=== PATIENT | male | born 1940 | race Caucasian/White ===

== ENCOUNTER → 2018-05-30 | Outpatient (CLI) | payer MEDICARE ==
[2018-05-30 09:15] LABS: Basophils % (A) 0 %; Eosinophils % (A) 1 %; HGB 14.6 gm/dL (13.0-17.5); Lymphocytes # (A) 2.3 k/uL (1.0-4.8); Lymphocytes % (A) 43 %; MCH 30.6 pg (25.0-35.0); MCHC 32.3 g/dL (31.0-37.0); MCV 94.7 fL (80.0-100.0); Mean Platelet Volume 7.2; Monocytes # (A) 0.3 k/uL (0-1.0); Monocytes % (A) 5 %; Neutrophils # (A) 2.7 k/uL (1.3-7.7); Neutrophils % (A) 49 %; Platelet Count 163 k/uL (150-450); RBC 4.76 m/uL (4.30-5.90); RDW 12.5 % (11.5-15.5); WBC 5.4 k/uL (3.8-10.6)
[2018-05-30 09:26] LABS: Partial Thromboplastin Time 24.2 sec (22.0-30.0); Prothrombin Time 9.6 sec (9.0-12.0)
[2018-05-30 09:34] LABS: Calcium 9.3 mg/dL (8.4-10.2)
[2018-05-30 09:37] LABS: Appearance,Urine Clear (Clear); Bilirubin,Urine Negative (Negative); Blood,Urine Negative (Negative); Color,Urine Yellow; Glucose,Urine (UA) 4+ (Negative); Ketones,Urine Negative (Negative); Leukocyte Esterase,Urine Negative (Negative); Nitrite,Urine Negative (Negative); Protein,Urine Negative (Negative); Urobilinogen,Urine <2.0 mg/dL (<2.0)
--- NOTE | 2018-05-30 11:50 | XR ---
EXAMINATION TYPE: XR chest 2V DATE OF EXAM: 05/30/2018 COMPARISON: 01/06/2011 HISTORY: 78-year-old male preoperative evaluation for lower back surgery TECHNIQUE: Frontal and lateral views FINDINGS: Heart normal size. Aorta and pulmonary vasculature within normal limits. No consolidation or pleural effusion. IMPRESSION: No acute cardiopulmonary process.
== END | disposition home or self-care (01) ==
LOC: LABPAT 07:42
PROVIDERS: ATTEND Orthopaedic Surgery Orthopaedic Surgery of the Spine
DX: Z01.818 Encounter for other preprocedural examination (principal); Z01.812 Encounter for preprocedural laboratory examination; M43.10 Spondylolisthesis, site unspecified; Z51.81 Encounter for therapeutic drug level monitoring; Z79.01 Long term (current) use of anticoagulants
CPT/HCPCS: 71046; 80048; 81003; 85025; 85610; 85730; 87070; 93005

== ENCOUNTER 2018-06-06 08:35 | Inpatient (IN) | payer MEDICARE ==
[2018-05-25 11:19] VITALS: BMI 30.8
[~2018-06-06 08:35] MED LIST: BACITRACIN 50,000 UNIT, POLYMYXIN B 500,000 UNIT in SODIUM CHLORIDE 0.9% IRRIGATIO 1,00... IRRIGATION ONE; HYDROmorphone 0.5 MG/0.5 ML SYRINGE IVP PRN; LIDOCAINE 1% 20 ML VIAL (10MG/ML) FOR IV START INTRADERMA PRN; ONDANSETRON 4 MG/2 ML VIAL IVP ONE; ceFAZolin IN SWFI 2 GM/20 ML SYRINGE IVP ONE
[2018-06-06 12:12] LABS: Glucose,Whole Blood 151 mg/dL (75-99)
[2018-06-06] MEDS: LACTATED RINGERS 1,000 ML IV SCH (12:12)
[2018-06-06] MEDS ORDERED: LIDOCAINE 0.5%-EPI 1:200,000 50 ML VIAL SQ ONE (13:44)
[2018-06-06] MEDS ORDERED: GELATIN SPONGE,ABSORB (LARGE) 1 EACH SPONGE TOPICAL ONE (13:44)
[2018-06-06] MEDS ORDERED: THROMBIN (BOVINE) 5,000 UNIT VIAL TOPICAL ONE (13:44)
[2018-06-06] MEDS ORDERED: LACTATED RINGERS 1,000 ML IV ONE ×2 (13:45→16:30)
[2018-06-06] MEDS ORDERED: BENZOCAINE/MENTHOL LOZENG 1 EACH LOZENGE MUCOUS MEM PRN (17:10)
[2018-06-06] MEDS ORDERED: MAGNESIUM HYDROXIDE 2,400 MG/10 ML CUP PO PRN (17:10)
[2018-06-06] MEDS ORDERED: ONDANSETRON 4 MG/2 ML VIAL IVP PRN (17:10)
[2018-06-06] MEDS ORDERED: HYDROcodone/APAP 5-325MG 1 EACH TAB PO PRN (17:10)
--- NOTE | 2018-06-06 17:24 | P.OP ---
Date of Procedure: 06/06/18 Preoperative Diagnosis: Severe spinal stenosis L3 4 L4 5, spondylolisthesis L4 5, facet arthrosis, degenerative disc disease, lower extremity radiculopathy, neurogenic claudication, low back pain with lower extremity radiculopathy Postoperative Diagnosis: Severe spinal stenosis L3 4 L4 5, spondylolisthesis L4 5, facet arthrosis, degenerative disc disease, lower extremity radiculopathy, neurogenic claudication, low back pain with lower extremity radiculopathy Anesthesia: GETA Pathology: none sent Condition: stable Disposition: PACU Description of Procedure: DESCRIPTION OF PROCEDURE(S): BRIEF OPERATIVE NOTE Preoperative Diagnosis: Severe spinal stenosis L3 4 L4 5, spondylolisthesis L4 5 , facet arthrosis, degenerative disc disease, lower extremity radiculopathy, neurogenic claudication, low back pain with lower extremity radiculopathy Postoperative Diagnosis: Same Procedure: Minimally invasive Laminectomy and decompression L3 4 L4 5 with wide decompression bilaterally Minimally invasive Posterior lateral decompression and facet fusion L3 4 L4 5 Minimally invasive Transforaminal lumbar interbody fusion for a 360 fusion L3 4 L4 5 Discectomy for decompression L3 4 L4 5 Placement of interbody graft L3 4 L4 5 Local autogenous bone grafting Use of Cell Saver Harvesting of bone marrow aspirate via the pedicle of L3 vertebral body Use of bone graft extenders Surgeon: Dr. Lang Manager Etl: Arnold NOLASCO who is present throughout the entire the case persistence during positioning, dissection, exposure, visualization, and all crucial elements of the case as well as closure. Anesthesia: General anesthesia per Dr. Dr. Swenson Estimated blood loss: Approximately 250 mL with some given back through Cell Saver Complications: None apparent Components implanted: K2M minimally invasive [place] pedicle screw system with K2M [place] interbody titanium expend cages 9-12 mm, with 2 rods and 1 large osteo amp sponge and 30 mL of DBX bone bone fibers to supplement the local autogenous and bone marrow aspirate graft Disposition: To recovery room in good stable condition. OPERATIVE INDICATIONS The patient has had long-standing issues in their lower back and lower extremities. He was found to have severe spinal stenosis L3 4 and L4 5 with spondylolisthesis at L4 5. His imaging correlated well with his neurogenic claudication lower extremity radiculopathy and low back pain with lower extremity pain. The patient has been through conservative treatment. He is not having any prolonged lasting effect with the conservative treatment despite aggressive conservative care We discussed various treatment options including surgery, and the patient wishes to proceed with surgery We discussed the risk, patient's alternatives and benefits of surgery including but not limited to, risk of bleeding risk of infection, risk of need for further surgery, risk of decreased, loss of motion, muscle function, malunion nonunion, hardware failure , nerve damage, paralysis, heart attack, blindness and . OPERATIVE SUMMARY After discussing all the risks, patient alternatives and benefits at length, the patient elected to proceed with surgical intervention, signed informed consent, and presented for their procedure. The patient was seen and examined in the preoperative holding area and the surgical site was marked. The patient was given antibiotics and brought to the operating room. The patient was sedated and intubated by anesthesia in standard fashion. The patient was positioned on to the operating room table in a prone position on the appropriate frame which was well-padded and well molded. We were careful to pad any bony prominences and pressure points. We were careful to maintain the patient's cervical spine and good neutral alignment and position throughout. The patient was prepped and draped in a normal standard fashion. An appropriate timeout and keystone protocol performed. We were able to proceed with the surgery. The local wound area was infiltrated with local anesthetic. I was able utilize C-arm guidance to establish appropriate position over the pedicles bilaterally at the appropriate levels at L3 4 and 5. With the appropriate levels confirmed was able to make small stab incisions over the appropriate pedicle sites bilaterally. Utilizing C-arm in his house able to establish a Jamshidi needle over the lateral aspect of the pedicle and advanced the trocar into the pedicle being careful not to breech superiorly inferiorly medially or laterally. Position was confirmed regularly with AP and lateral images on C-arm. I was able to establish the trocar into the pedicle appropriately into the posterior aspect of the vertebral body bilaterally at the appropriate levels. This was done at each of the pedicle positions and each of the vertebrae at L3 4 and [address] I was able place the guidewire into the trocar and into the vertebral body appropriately under C-arm guidance. Dissection was taken down over the wire to the appropriate starting position for the screw placed. The appropriate length screw was chosen, threaded over the guidewire and screwed appropriately into the pedicle and vertebral body under C-arm guidance in excellent alignment and position with good bony purchase. This is done at each of the screw sites at the appropriate levels at L3 4 and 5. At the L3 pedicle I did aspirate approximately 20 mL of bone marrow aspirate to be used in conjunction with the local autogenous and allograft bone graft With the screws intact I extended the incision to connect the screw hole sites on the most symptomatic side on the right. I dissected down to establish access over the pars and lamina to the base of the spinous process. I was able to expose the facet joint. The capsule the facet was taken down and showed some facet arthrosis at the joint. I was able to use a combination of curettes and Kerrison rongeurs and a high-speed drill to take down the facet joint and do a facetectomy. Partial laminectomy was also performed. I was able get excellent foraminal decompression and central decompression with undermining across midline to perform a laminectomy centrally and contralaterally. As able get good central decompression at each level L3 4 and L4 5. The ligamentum flavum was taken down to further decompress centrally and at bilateral neural foramen. I was able to expose the disc space and visualize the traversing nerve root. Note was made of some disc protrusion at the level causing further compression of the nerve root. I was able to establish a annulotomy at the appropriate level first at protecting sof L4 5 and then at L3 4t tissue and neural structures. Note was made of some disc significant desiccation at the disc. I performed a complete discectomy with accommodation of curettes and rasps and scrapers. I was able get good endplate preparation at the disc space. I sized for the appropriate size interbody spacer protecting the soft tissue and neural structures. The wound was copiously irrigated and suctioned dry. There is no evidence of any dural tear or leak. I was able to pack the disc space with local autogenous bone graft as well as a small amount of bone graft which was also placed into the interbody cage itself. Protecting the soft tissue structures and neural structures I was able place the interbody cage in good alignment and good position with good fit and fill at the interbody space. I was able to expand the cage appropriately to achieve good lordosis and disc height. Position was confirmed with C-arm guidance. Good hemostasis maintained. There is no evidence of any dural tear or leak. The wound was irrigated and suctioned dry. With the hardware intact, intraoperative C-arm imaging was again taken which showed good alignment and position of the hardware at the appropriate levels at L3 4 and L4 5 . We were then able to measure, contour and place the rods and appropriate hardware bilaterally. I was able to place capcrews, tighten them down, and torque them with the torque screwdriver appropriately. With this intact I was able to place the local autogenous bone graft with additional bone graft enhancer as necessary into the posterior lateral gutters over the decorticated transverse processes. The remainder of the bone graft was placed over the facet joint on the contralateral side after taking down the facet joint capsule. With the bone graft intact, a stable construct, and good decompression at the appropriate levels, we were able to proceed with closure. Good hemostasis was maintained. There is no evidence of dural tear or leak. The fascia was closed for a watertight closure. he subcuticular tissue was closed with absorbable suture. The wound was cleaned and dried and dressed with the appropriate dressing. The drapes were broken down. The patient was gently rolled back onto their hospital bed being careful to maintain their cervical spine and good neutral alignment and position. They were woken up by anesthesia, extubated, and brought to the recovery room in good stable condition. The patient will be admitted to the hospital for appropriate postoperative care , medical management and monitoring. We will continue to follow them closely about the postoperative course.
[2018-06-06] MEDS: HYDROmorphone 1 MG/ML 1 ML SYRINGE IVP PRN ×3 (17:35→21:14)
[2018-06-06] MEDS: SODIUM CHLORIDE 0.9% 1,000 ML IV SCH (21:01)
[2018-06-06] MEDS: metFORMIN 500 MG TAB PO SCH (21:02)
[2018-06-06] MEDS: DONEPEZIL 10 MG TAB PO SCH (21:02)
[2018-06-06] MEDS: MAGNESIUM OXIDE 400 MG TAB PO SCH (21:02)
[2018-06-06] MEDS: ceFAZolin IN SWFI 2 GM/20 ML SYRINGE IVP SCH (21:02)
[2018-06-06] MEDS: OXYBUTYNIN CHLORIDE 5 MG TAB PO SCH (21:02)
[2018-06-07] MEDS: ONDANSETRON 4 MG/2 ML VIAL IVP PRN ×2 (04:30→11:36)
[2018-06-07] MEDS: HYDROmorphone 1 MG/ML 1 ML SYRINGE IVP PRN ×3 (04:34→14:40)
[2018-06-07] MEDS: ceFAZolin IN SWFI 2 GM/20 ML SYRINGE IVP SCH (04:36)
[2018-06-07] MEDS: LACTATED RINGERS 1,000 ML IV SCH (04:59)
[2018-06-07] MEDS: SODIUM CHLORIDE 0.9% 1,000 ML IV SCH ×2 (05:43→22:17)
--- NOTE | 2018-06-07 05:51 | CONS ---
CONSULTATION DATE OF SERVICE: 06/07/2018. REASON FOR CONSULTATION: Advice regarding diabetes mellitus and CVA requested by Dr. Lang. HISTORY OF PRESENT ILLNESS: This 78-year-old gentleman with a past history of diabetes, hypertension, history of memory impairment, being followed by Dr. Maloney in the outpatient setting underwent minimally invasive laminectomy and decompression L3-4-5 with wide decompression bilaterally for his severe spinal stenosis and spondylolisthesis by Dr. Lang. The patient is having complaints of pain and complains of nausea at this time. The patient apparently received Dilaudid 1 mg. There is no history of fever, rigors. No headache, loss of consciousness, seizures. PAST MEDICAL: CVA, TIA, diabetes and hypertension, memory impairment, history of degenerative joint disease. MEDICATIONS: Prior to admission include home medications are: 1. Glucophage 500 mg p.o. b.i.d. 2. Norvasc 10 mg p.o. daily. 3. Ditropan 5 mg p.o. b.i.d. 4. Antivert 25 mg p.o. daily. 5. Magnesium oxide 400 mg p.o. b.i.d. 6. Lantus 28 units subcu q.a.m. 7. Motrin 600 mg p.o. t.i.d. 8. Vasotec 10 mg p.o. daily. 9. Aricept 10 mg q.h.s. 10.Aggrenox 200/25 1 p.o. b.i.d. 11.Vitamin D3 5000 daily. ALLERGIES: None. FAMILY HISTORY: No history of heart disease or strokes in family. SOCIAL HISTORY: Previous history of smoking. No history of alcohol intake. REVIEW OF SYSTEMS: ENT: No diminished hearing or vision. CARDIOVASCULAR: No angina. RESPIRATORY: As mentioned earlier. GI: As mentioned earlier. : No dysuria. NERVOUS SYSTEM: No numbness or weakness. ALLERGY/IMMUNOLOGY: No history of asthma or hay fever. MUSCULOSKELETAL: As mentioned earlier. HEMATOLOGY: No history of anemia. ENDOCRINE: History of diabetes. CONSTITUTIONAL: As mentioned earlier. DERMATOLOGY: Negative. RHEUMATOLOGY: Negative. PSYCHIATRY: As mentioned earlier. PHYSICAL EXAMINATION: Alert and oriented x3. Pulse 83, blood pressure 140/73, respiration 12, temperature 97.4, pulse ox 98% on 3 L. HEENT: Conjunctivae normal. Oral mucosa moist. NECK; No jugular venous distention. No carotid bruit. No lymph node enlargement. CARDIOVASCULAR: S1, S2. RESPIRATORY: Breath sounds diminished in the bases. A few scattered rhonchi and crackles. ABDOMEN: Soft, nontender. No mass palpable. BACK: Status post surgery. LEGS: No edema, no swelling. NERVOUS SYSTEM: Higher functions as mentioned. Moves all four limbs. No focal motor deficits. LYMPHATICS: No lymphadenopathy in the neck, axillae, groin. SKIN: No ulcer, rash, bleeding. LAB STUDIES: Glucose 151, otherwise the previous labs prior to surgery: Coags, CBC, BMP within normal limits. ASSESSMENT: 1. Status post laminectomy decompression L3-4-5 with wide decompression bilaterally for severe spinal stenosis L3-4-5 and spondylolisthesis. 2. Postoperative nausea. 3. Diabetes mellitus type 2. 4. Hypertension. 5. Memory impairment. 6. Urinary incontinence, history. 7. Remote history of nicotine dependence. RECOMMENDATIONS AND DISCUSSION This 78-year-old gentleman presents after surgery at this time I recommend to continue the current management and symptomatic treatment. Proton pump inhibitors and pain medications. DVT prophylaxis. Otherwise resume the home medications. We will monitor blood sugars closely. Accu-Cheks a.c. and at bedtime, scale also will be recommended. Follow the patient closely and the patient may be asked to follow up with primary physician closely after discharge. Thank you Dr. Lang for letting us participate in this patient. MMODL / IJN: [id number] /
[2018-06-07 07:18] LABS: Basophils % (A) 0 %; Eosinophils % (A) 0 %; HCT 40.9 % (39.0-53.0); HGB 13.7 gm/dL (13.0-17.5); Lymphocytes # (A) 1.1 k/uL (1.0-4.8); Lymphocytes % (A) 10 %; MCH 31.7 pg (25.0-35.0); MCHC 33.5 g/dL (31.0-37.0); MCV 94.7 fL (80.0-100.0); Mean Platelet Volume 6.7; Monocytes # (A) 0.6 k/uL (0-1.0); Monocytes % (A) 5 %; Neutrophils # (A) 9.4 k/uL (1.3-7.7); Neutrophils % (A) 84 %; Platelet Count 150 k/uL (150-450); RBC 4.31 m/uL (4.30-5.90); RDW 12.2 % (11.5-15.5); WBC 11.1 k/uL (3.8-10.6)
[2018-06-07] MEDS: HYDROcodone/APAP 5-325MG 1 EACH TAB PO PRN ×2 (07:19→20:25)
[2018-06-07 07:31] LABS: Anion Gap 9 mmol/L; Blood Urea Nitrogen 17 mg/dL (9-20); Calcium 8.8 mg/dL (8.4-10.2); Carbon Dioxide 25 mmol/L (22-30); Chloride 106 mmol/L (98-107); Glucose 244 mg/dL (74-99); Potassium 4.1 mmol/L (3.5-5.1); Sodium 140 mmol/L (137-145)
[2018-06-07 07:32] LABS: Glucose,Whole Blood 211 mg/dL (75-99)
--- NOTE | 2018-06-07 07:54 | XR ---
Fluoroscopy History: HARDWARE PLACEMENT 2 MIN 4 SEC FLUORO, 3 IMAGES SCANNED INTO PACS
[2018-06-07] MEDS ORDERED: DIPYRIDAMOLE-ASPIRIN 200-25 MG 1 EACH CPMP.12HR PO SCH (08:00)
--- NOTE | 2018-06-07 08:24 | P.PN ---
<Arnold Godwin - Last Filed: 06/07/18 08:23> Progress Note - Text Progress Note Date: 06/07/18 Orthopedic Spine Patient is a pleasant 78-year-old male who is seen and examined at the bedside following posterior lateral decompression and fusion performed yesterday. Patient states they are doing ok postsurgically. Patient continues have significant pain at the surgical sites. He has not been out of bed. He has difficulty with performing hip flexion with the left lower extremity. He is able to perform ankle flexion-extension without difficulty. He is not currently complaining of lower extremity radiculopathy pain. He had some nausea with vomiting this morning but was able to eat breakfast. He is currently drinking orange juice. Currently does not complain of fever or chills. Patient states pain has been fairly well controlled. Patient is eating and voiding freely without difficulty. Whole catheter remains intact Physical Exam Lumbar Fusion: Status post surgical day number 1 Patient is awake, alert, and oriented 3 Vital signs stable Good chest excursion with deep inspiration and expiration; O2 nasal cannula intact Abdomen soft nontender Dorsiflexion, plantarflexion, and extensor hallucis longus positive sustained bilaterally Symptoms difficulty with performing hip flexion on the left No signs or symptoms of DVT; no calf pain; pneumatic cuffs not currently intact bilateral lower extremities Dressing is clean, dry, and intact; no erythema, purulence, or signs of infection Neurovascularly intact bilaterally lower extremities Assessment: Status post Minimally invasive posterior lateral decompression and fusion L3-4 and L4-5 Status post Transforaminal lumbar interbody fusion L3-4 and L4-5 Low back pain with lower extremity radiculopathy Lumbar spinal stenosis, facet arthrosis, and degenerative disc disease L4-5 spondylolisthesis Plan: 1. Ambulate as tolerated; work with Physical Therapy to increase mobilization 2. Continue pain control with IV and oral medications 3. Dressing to remain intact with Telfa and Tegaderm 4. Medical management can continue to manage patient for patient's other medical issues 5. We will continue to follow the patient closely 6. Patient can follow-up with Arnold Godwin PA-C or Dr. Marty Lang at [facility] in 2-3 weeks following discharge <Caitlyn Lang - Last Filed: 06/07/18 21:22> Progress Note - Text Patient is seen and examined today. He has been having very limited mobility today. The Francois still intact. He was able to sit up at the side of the bed but was unable to do anymore due to the pain in his back. He is alert and oriented 3 not exactly sure about how he should be handling his pain. Overall I think he is handling his pain adequately but I like to get him more mobilized by the morning. We will discontinue his Francois in the a.m. and plan on him increasing examination with physical therapy. We will also need to have him seen by case management for proper evaluation for possible discharge planning either to home or potentially a [facility] facility.
[2018-06-07] MEDS: INSULIN ASPART 100 UNIT/ML 1 ML 10 ML VIAL SQ SCH ×4 (08:29→20:24)
[2018-06-07] MEDS: PANTOPRAZOLE 40 MG/10 ML VIAL IVP SCH ×2 (08:29→20:25)
[2018-06-07] MEDS: INSULIN DETEMIR 100 UNIT/ML 10 ML VIAL SQ SCH (08:29)
[2018-06-07] MEDS: metFORMIN 500 MG TAB PO SCH ×2 (08:32→20:24)
[2018-06-07] MEDS: MAGNESIUM OXIDE 400 MG TAB PO SCH ×2 (08:32→20:24)
[2018-06-07] MEDS: OXYBUTYNIN CHLORIDE 5 MG TAB PO SCH ×2 (08:32→20:24)
[2018-06-07] MEDS: SENNOSIDES-DOCUSATE SODIUM 1 EACH TAB PO SCH (08:33)
[2018-06-07] MEDS: CHOLECALCIFEROL 1,000 UNIT TAB PO SCH (08:33)
[2018-06-07] MEDS: amLODIPine 10 MG TAB PO SCH (08:33)
[2018-06-07] MEDS: MECLIZINE 25 MG TAB PO SCH (08:35)
[2018-06-07] MEDS: LISINOPRIL 20 MG TAB PO SCH (08:35)
[2018-06-07 11:54] LABS: Glucose,Whole Blood 284 mg/dL (75-99)
[2018-06-07 12:45] LABS: Hemoglobin A1C 6.7 % (4.0-6.0)
--- NOTE | 2018-06-07 14:19 | PN ---
PROGRESS NOTE DATE OF SERVICE: 06/07/2018 This is a 78-year-old gentleman admitted after back surgery and significant vomiting today. No chest pain. No palpitations. Blood sugar is elevated. PAST MEDICAL HISTORY: Reviewed. REVIEW OF SYSTEMS: CARDIOVASCULAR: As mentioned earlier. RESPIRATORY: As mentioned earlier. GI: As mentioned earlier. : Negative. NERVOUS SYSTEM: Negative. PHYSICAL EXAMINATION: Patient is alert, oriented x3. Pulse is 80. The blood pressure 160/97, respiration 14, temperature 98.2, pulse ox 98% on room air. HEENT: Conjunctivae normal, oral mucosa moist. Neck is no jugular venous distention. No lymph node enlargement. CARDIOVASCULAR SYSTEMS: S1, S2, muffled. RESPIRATORY: Breath sounds diminished at the bases, a few scattered rhonchi, no crackles. ABDOMEN: Soft, nontender. No mass palpable. LEGS: No edema, no swelling. NERVOUS SYSTEM: No focal deficits. extension back status post surgery please add review of systems cardiovascular no angina respiration GI mentioned : As mentioned earlier. CURRENT MEDICATIONS: Reviewed include: 1. Gilbert 5 mg q.4 p.r.n. 2. Norvasc 10 mg daily. 3. Vitamin D3. 4. Aggrenox 1 p.o. b.i.d. 5. Aricept. 6. Dilaudid. 7. NovoLog. 8. Levemir. 9. Lactated Ringers. 10.Lisinopril. 11.Milk of Magnesia. 12.Magnesium oxide. 13.Antivert. 14.Glucophage. 15.Zofran. 16.Ditropan. 17.Protonix. LABS: Reviewed. ASSESSMENT: 1. Status post laminectomy with decompression L3, 4, 5 with decompression bilaterally for severe spinal stenosis L3, 4, 5 and spondylolisthesis. 2. Postoperative nausea and acute gastritis. 3. Diabetes mellitus type 2. 4. Hypertension. 5. Memory impairment. 6. Urinary incontinence history. 7. Remote history of nicotine dependence. RECOMMENDATION: Recommend to continue current management and symptomatic treatment, otherwise as this time I would recommend IV fluids, n.p.o. per mouth, Protonix IV b.i.d. Recommend to hold the Aggrenox for now and also check serum ketones. Otherwise, I will continue to monitor. Follow with . Further recommendations to follow. MMODL / IJN: [id number] / CYNTHIA
[2018-06-07 14:41] LABS: Appearance,Urine Clear (Clear); Bacteria,Urine Rare /hpf; Bilirubin,Urine Negative (Negative); Blood,Urine Small (Negative); Color,Urine Yellow; Glucose,Urine (UA) 4+ (Negative); Ketones,Urine Trace (Negative); Leukocyte Esterase,Urine Trace (Negative); Mucus,Urine Rare /hpf; Nitrite,Urine Negative (Negative); Protein,Urine Trace (Negative); RBC,Urine 3 /hpf (0-5); Specific Gravity,Urine 1.022 (1.001-1.035); Squamous Epithelial Cell,Urine <1 /hpf (0-4); Urobilinogen,Urine <2.0 mg/dL (<2.0); WBC,Urine 6 /hpf (0-5)
[2018-06-07 16:46] LABS: Glucose,Whole Blood 250 mg/dL (75-99)
[2018-06-07 19:53] LABS: Glucose,Whole Blood 179 mg/dL (75-99)
[2018-06-07] MEDS: DONEPEZIL 10 MG TAB PO SCH (20:24)
[2018-06-08] MEDS: LACTATED RINGERS 1,000 ML IV SCH (04:38)
[2018-06-08] MEDS: HYDROmorphone 1 MG/ML 1 ML SYRINGE IVP PRN (06:03)
[2018-06-08] MEDS: SODIUM CHLORIDE 0.9% 1,000 ML IV SCH ×2 (06:31→23:35)
[2018-06-08 07:06] LABS: Glucose,Whole Blood 162 mg/dL (75-99)
[2018-06-08] MEDS: INSULIN ASPART 100 UNIT/ML 1 ML 10 ML VIAL SQ SCH ×4 (08:08→20:25)
[2018-06-08] MEDS: PANTOPRAZOLE 40 MG/10 ML VIAL IVP SCH ×2 (08:16→20:05)
[2018-06-08] MEDS: amLODIPine 10 MG TAB PO SCH (08:16)
[2018-06-08] MEDS: MAGNESIUM OXIDE 400 MG TAB PO SCH ×2 (08:16→20:05)
[2018-06-08] MEDS: metFORMIN 500 MG TAB PO SCH ×2 (08:16→20:05)
[2018-06-08] MEDS: LISINOPRIL 20 MG TAB PO SCH (08:16)
[2018-06-08] MEDS: OXYBUTYNIN CHLORIDE 5 MG TAB PO SCH ×2 (08:16→20:05)
[2018-06-08] MEDS: SENNOSIDES-DOCUSATE SODIUM 1 EACH TAB PO SCH (08:16)
[2018-06-08] MEDS: CHOLECALCIFEROL 1,000 UNIT TAB PO SCH (08:16)
[2018-06-08] MEDS: INSULIN DETEMIR 100 UNIT/ML 10 ML VIAL SQ SCH (08:17)
[2018-06-08] MEDS: MECLIZINE 25 MG TAB PO SCH (08:18)
[2018-06-08] MEDS: HYDROcodone/APAP 5-325MG 1 EACH TAB PO PRN ×4 (08:28→23:36)
[2018-06-08 11:46] LABS: Glucose,Whole Blood 157 mg/dL (75-99)
--- NOTE | 2018-06-08 12:53 | P.PN ---
Progress Note - Text Progress Note Date: 06/08/18 Orthopedic Spine: Patient is a pleasant 78-year-old male who is seen and examined at the bedside following posterior lateral decompression and fusion performed Wednesday. Patient states they are doing ok postsurgically. Patient continues have significant pain at the surgical sites. He has not been out of bed. Currently working with nursing to transfer to a bedside chair. He is able to roll better in bed today as compared to yesterday. He has difficulty with performing hip flexion with the left lower extremity. He is able to perform ankle flexion-extension without difficulty. He is not currently complaining of lower extremity radiculopathy pain. He has continued to have some nausea postoperatively with some improvement this morning. He was unable to eat many food yesterday. He has basically been maintaining a clear diet. He is waiting for some food to be delivered to the bedside this morning. Currently does not complain of fever or chills. Patient states pain has been fairly well controlled. Francois catheter has been discontinued and he has been voiding freely without difficulty. Patient has been seen and examined by medicine this morning. Recent lab testing does show evidence of urinary tract infection Physical Exam Lumbar Fusion: Status post surgical day number 2 Patient is awake, alert, and oriented 3 Vital signs stable Good chest excursion with deep inspiration and expiration; O2 nasal cannula intact Abdomen soft nontender Dorsiflexion, plantarflexion, and extensor hallucis longus positive sustained bilaterally Symptoms difficulty with performing hip flexion on the left No signs or symptoms of DVT; no calf pain; pneumatic cuffs not currently intact bilateral lower extremities Dressing is clean, dry, and intact with some dried blood active drainage; no erythema, purulence, or signs of infection Neurovascularly intact bilaterally lower extremities Pertinent studies: Urine analysis: Urine protein trace, urine glucose 4+, urine ketones trace, urine blood small, urine leukocytes and trace trace, urine WBC 6, urine bacteria rare, urine mucus Assessment: Status post Minimally invasive posterior lateral decompression and fusion L3-4 and L4-5 Status post Transforaminal lumbar interbody fusion L3-4 and L4-5 Low back pain with lower extremity radiculopathy Lumbar spinal stenosis, facet arthrosis, and degenerative disc disease L4-5 spondylolisthesis Urinary tract infection Plan: 1. Ambulate as tolerated; work with Physical Therapy to increase mobilization 2. Continue pain control with IV and oral medications 3. Dressing to remain intact with Telfa and Tegaderm 4. Medical management can continue to manage patient for patient's other medical issues; medicine will plan to treat patient for urinary tract infection 5. We will continue to follow the patient closely; he has been seen by case management will continue to work with patient and his insurance to find an appropriate facility for rehabilitation at discharge 6. Patient can follow-up with Arnold Godwin PA-C or Dr. Marty Lang at [facility] in 2-3 weeks following discharge
[2018-06-08 16:45] LABS: Glucose,Whole Blood 166 mg/dL (75-99)
--- NOTE | 2018-06-08 18:56 | PN ---
PROGRESS NOTE DATE OF SERVICE: 06/08/2018. INTERVAL HISTORY: This 78-year-old gentleman who was admitted after laminectomy had nausea and vomiting yesterday. Currently the patient is feeling slightly better. No chest pain. No palpitations. No fever. EXAM: Alert and oriented times three. Pulse 90, blood pressure 130/72, respirations 16, temperature 98.2, pulse ox 94% on room air. HEENT: Conjunctivae normal. Neck: No jugular venous distention. No carotid bruit. Cardiovascular system: S1, S2 muffled. Respirations: Breath sounds diminished in the bases. A few scattered rhonchi and crackles. Abdomen is soft, nontender. Central nervous system: No focal deficits. LABS: UA noted and glucose 157. ASSESSMENT: 1. Status post laminectomy decompression L3-4 with C4 severe spinal stenosis and spondylosis. 2. Postop nausea and acute gastritis, improving. 3. Diabetes mellitus type 2. 4. Hypertension. 5. Memory impairment. 6. Urinary incontinence history. 7. Remote history of nicotine dependence. RECOMMENDATIONS AND DISCUSSION: Recommend to continue current medications, management and symptomatic treatment. Otherwise at this time, I would recommend continue the current medication. Advance diet as tolerated. Otherwise, continue to monitor. Further recommendations to follow. Closely follow with orthopedic surgery. Further recommendations to follow. MMODL / IJN: [id number] /
[2018-06-08] MEDS: DONEPEZIL 10 MG TAB PO SCH (20:05)
[2018-06-08 20:30] LABS: Glucose,Whole Blood 171 mg/dL (75-99)
[2018-06-08] MEDS: ONDANSETRON 4 MG/2 ML VIAL IVP PRN (23:54)
[2018-06-09] MEDS: LACTATED RINGERS 1,000 ML IV SCH (04:54)
[2018-06-09 07:01] LABS: Glucose,Whole Blood 171 mg/dL (75-99)
[2018-06-09] MEDS: LISINOPRIL 20 MG TAB PO SCH (08:53)
[2018-06-09] MEDS: metFORMIN 500 MG TAB PO SCH (08:53)
[2018-06-09] MEDS: PANTOPRAZOLE 40 MG/10 ML VIAL IVP SCH (08:53)
[2018-06-09] MEDS: SENNOSIDES-DOCUSATE SODIUM 1 EACH TAB PO SCH (08:53)
[2018-06-09] MEDS: MECLIZINE 25 MG TAB PO SCH (08:53)
[2018-06-09] MEDS: CHOLECALCIFEROL 1,000 UNIT TAB PO SCH (08:53)
[2018-06-09] MEDS: MAGNESIUM OXIDE 400 MG TAB PO SCH (08:53)
[2018-06-09] MEDS: amLODIPine 10 MG TAB PO SCH (08:53)
[2018-06-09] MEDS: INSULIN ASPART 100 UNIT/ML 1 ML 10 ML VIAL SQ SCH ×2 (08:53→13:39)
[2018-06-09] MEDS: OXYBUTYNIN CHLORIDE 5 MG TAB PO SCH (08:53)
[2018-06-09] MEDS: HYDROcodone/APAP 5-325MG 1 EACH TAB PO PRN ×2 (08:58→17:29)
[2018-06-09] MEDS: INSULIN DETEMIR 100 UNIT/ML 10 ML VIAL SQ SCH (09:05)
--- NOTE | 2018-06-09 09:11 | P.DS ---
Providers Date of admission: 06/06/18 11:09 Attending physician: Caitlyn Lang Consults: 06/06/18 17:10 Consult Physician Routine Consulting Provider: Nestor Maloney Consult Reason/Comments: Medical management Do you want consulting provider notified?: Yes 06/06/18 17:22 Consult Physician Routine Consulting Provider: Beti Potter Consult Reason/Comments: medicla management Do you want consulting provider notified?: Yes Primary care physician: Nestor Maloney [place] [facility] Course: The patient presented on the day of admission as per his operative note. He is now postoperative day #3 status post minimally invasive decompression and fusion at L3 4 and L4 5 for his severe spinal stenosis with spondylolisthesis and lower extremity radiculopathy with neurogenic claudication. He has been making progress postoperatively and this morning says he is feeling pretty good. He says he has pain when he tries to move which is expected. He has been able to keep on his own. He has been able to eat his diet. He denies any new changes in his lower extremities. He denies any fevers chills. Physical Exam The incision site is clean dry and intact. There is no erythema no drainage. There is no purulence no evidence of infection. His incision sites look good Abdomen soft and nontender. Chest has good excursion with deep inspiration and expiration. The patient has active and passive range of motion intact at the upper and lower extremities. There is no acute change in neurologic status. He is able to move his legs independently his good flexion extension of his knees and ankles feet and toes. Hospital Course Postoperative day #3 status post minimally invasive decompression fusion at L3 4 L4 5 for his severe spinal stenosis with spondylolisthesis and lower extremity radiculopathy with neurogenic claudication. The patient has been making steady progress postoperatively. They have completed the prophylactic antibiotics without any signs or symptoms of infection. The patient has been able to advance their diet, and is tolerating diet adequately. The pain was initially controlled with IV medications and is now controlled appropriately with oral medications. The patient has been able to increase their mobilization. The patient has progressed appropriately. I think they are in good stable condition for discharge today to senior living facility. He has been able to get approved for a spot at [facility] which is near her his home and we are finalizing arrangements for that. They will be sent home with appropriate prescriptions. I answered their questions to the best of my ability in a language that they can understand and they are agreeable with the plan. They will follow up as directed in approximately 2 weeks or sooner if he is having any problems. Patient Condition at Discharge: Good Plan - Discharge Summary Discharge Rx Participant: Yes New Discharge Prescriptions: No Action Donepezil [Aricept] 10 mg PO HS Cholecalciferol [Vitamin D3] 5,000 unit PO DAILY metFORMIN HCL [Glucophage] 500 mg PO BID amLODIPine [Norvasc] 10 mg PO DAILY Oxybutynin Chloride [Ditropan] 5 mg PO BID Magnesium Oxide [Mag-Ox] 400 mg PO BID Ibuprofen [Motrin] 600 mg PO TID Enalapril [Vasotec] 10 mg PO DAILY Insulin Glargine,Hum.rec.anlog [Lantus Solostar] 28 unit SQ QAM Dipyridamole-Aspirin 200-25 mg [Aggrenox] 1 cap PO BID Meclizine [Antivert] 25 mg PO DAILY Discharge Medication List Cholecalciferol [Vitamin D3] 5,000 unit PO DAILY 05/25/18 [History] Dipyridamole-Aspirin 200-25 mg [Aggrenox] 1 cap PO BID 05/25/18 [History] Donepezil [Aricept] 10 mg PO HS 05/25/18 [History] Enalapril [Vasotec] 10 mg PO DAILY 05/25/18 [History] Ibuprofen [Motrin] 600 mg PO TID 05/25/18 [History] Insulin Glargine,Hum.rec.anlog [Lantus Solostar] 28 unit SQ QAM 05/25/18 [ History] Magnesium Oxide [Mag-Ox] 400 mg PO BID 05/25/18 [History] Meclizine [Antivert] 25 mg PO DAILY 05/25/18 [History] Oxybutynin Chloride [Ditropan] 5 mg PO BID 05/25/18 [History] amLODIPine [Norvasc] 10 mg PO DAILY 05/25/18 [History] metFORMIN HCL [Glucophage] 500 mg PO BID 05/25/18 [History] Follow up Appointment(s)/Referral(s): Arnold Godwin, DEAN [PHYSICIAN RAILROAD TRACK INSPECTOR] - 2 Weeks (Patient may follow-up with Arnold Godwin PA-C or Dr. Marty Lang at [facility] in 2-3 weeks following discharge. ) Activity/Diet/Wound Care/Special Instructions: [facility] for rehab 1. Patient may shower with Tegaderm dressing intact. 2. Patient may remove Tegaderm dressing in 3 days and shower without a dressing at that time. 3. Patient should keep Steri-Strips intact and allow them to fall off naturally. 4. Patient should refrain from driving until at least after their first follow- up appointment in the office. 5. Patient should avoid excessive bending, twisting, and lifting; no lifting greater than 10 pounds 6. Take medications as prescribed 7. Do not soak in tub Discharge Disposition: TRANSFER TO SNF/ECF
[2018-06-09 09:32] VITALS: RESP 16
[2018-06-09 11:36] LABS: Glucose,Whole Blood 156 mg/dL (75-99)
[2018-06-09 14:59] VITALS: BP 146/60; PULSE 84; TEMP 97.4
--- NOTE | 2018-06-09 15:54 | PN ---
PROGRESS NOTE DATE OF SERVICE: 06/09/2018 This 78 -year-old gentleman admitted with laminectomy decompression, improved significantly. Patient had acute gastritis, which is improving. No chest pain. No palpitations. No fever. PHYSICAL EXAM: Alert and oriented times three. Pulse 93, blood pressure 157/69, respiration 16, temperature 98.2, pulse ox 98% on room air. HEENT: Conjunctivae normal. Oral mucosa moist. Neck is no jugular venous distention. No carotid bruit. No thyroid enlargement. Cardiovascular system: S1, S2 muffled. Respirations: Breath sounds diminished in the bases. No rhonchi. No crackles. ABDOMEN: Soft, nontender. Legs no edema. No swelling. Central nervous system: No focal deficits. Back: Status post surgery. LABS: Accu-Cheks 171, 156. ASSESSMENT: 1. Status post laminectomy decompression L3-4 for severe spinal stenosis and spondylolisthesis. 2. Acute gastritis, improving. 3. Diabetes mellitus type 2. 4. Hypertension. 5. Memory impairment. 6. Urinary incontinence history. 7. Remote history of nicotine dependence. RECOMMENDATIONS AND DISCUSSION: Recommend to continue current medications, management and symptomatic treatment. Continue the Protonix. Closely follow in the ECF. Restart Aggrenox in a few days. The rest of medications per orthopedic surgery. Close follow up with Dr. Maloney in the outpatient setting. Further recommendations to follow. MMODL / IJN: [id number] /
[2018-06-09] MEDS: SODIUM CHLORIDE 0.9% 1,000 ML IV SCH (16:46)
[2018-06-09] MEDS ORDERED: PANTOPRAZOLE 40 MG TABLET PO SCH (17:30)
== END 2018-06-09 18:10 | DRG 460 ==
LOC: 2ORMAIN 11:09 → 3SUR 17:04
PROVIDERS: ADMIT Orthopaedic Surgery Orthopaedic Surgery of the Spine; ATTEND Orthopaedic Surgery Orthopaedic Surgery of the Spine
PROC: 0SG1070 Fusion of 2 or more Lumbar Vertebral Joints with Autologous Tissue Substitute, Anterior Approach, Anterior Column, Open Approach (ICD-10-PCS; 2018-06-06)
PROC: 0SB20ZZ Excision of Lumbar Vertebral Disc, Open Approach (ICD-10-PCS; 2018-06-06)
PROC: 07DS3ZZ Extraction of Vertebral Bone Marrow, Percutaneous Approach (ICD-10-PCS; 2018-06-06)
PROC: 30233N0 Transfusion of Autologous Red Blood Cells into Peripheral Vein, Percutaneous Approach (ICD-10-PCS; 2018-06-06)
PROC: 0SG10AJ Fusion of 2 or more Lumbar Vertebral Joints with Interbody Fusion Device, Posterior Approach, Anterior Column, Open Approach (ICD-10-PCS; principal; 2018-06-06 13:00)
DX: M43.16 Spondylolisthesis, lumbar region (principal); N39.0 Urinary tract infection, site not specified; E11.40 Type 2 diabetes mellitus with diabetic neuropathy, unspecified; I11.9 Hypertensive heart disease without heart failure; M47.26 Other spondylosis with radiculopathy, lumbar region; M48.062 Spinal stenosis, lumbar region with neurogenic claudication; R41.3 Other amnesia; M51.16 Intervertebral disc disorders with radiculopathy, lumbar region; M46.96 Unspecified inflammatory spondylopathy, lumbar region; K29.00 Acute gastritis without bleeding; E78.5 Hyperlipidemia, unspecified; M46.06 Spinal enthesopathy, lumbar region; H40.9 Unspecified glaucoma; H53.8 Other visual disturbances; Z87.891 Personal history of nicotine dependence; Z79.4 Long term (current) use of insulin; Z79.899 Other long term (current) drug therapy; Z86.73 Personal history of transient ischemic attack (TIA), and cerebral infarction without residual deficits; Z98.42 Cataract extraction status, left eye; Z98.41 Cataract extraction status, right eye; Z96.1 Presence of intraocular lens
CPT/HCPCS: 72100; 80048; 81001; 82009; 83036; 85025; 86850; 86900; 86901

== ENCOUNTER 2018-09-27 17:51 | Inpatient (IN) | payer MEDICARE ==
[2018-09-27 19:00] LABS: Basophils % (A) 0 %; Eosinophils # (A) 0.1 k/uL (0-0.7); Eosinophils % (A) 1 %; HCT 36.9 % (39.0-53.0); HGB 12.6 gm/dL (13.0-17.5); Lymphocytes # (A) 2.8 k/uL (1.0-4.8); Lymphocytes % (A) 34 %; MCH 31.9 pg (25.0-35.0); MCHC 34.2 g/dL (31.0-37.0); MCV 93.4 fL (80.0-100.0); Mean Platelet Volume 6.9; Monocytes # (A) 0.4 k/uL (0-1.0); Monocytes % (A) 4 %; Neutrophils # (A) 4.8 k/uL (1.3-7.7); Neutrophils % (A) 59 %; Platelet Count 233 k/uL (150-450); RBC 3.95 m/uL (4.30-5.90); RDW 12.5 % (11.5-15.5); WBC 8.2 k/uL (3.8-10.6)
[2018-09-27 19:10] LABS: ALT 41 U/L (21-72); AST 23 U/L (17-59); Albumin 3.7 g/dL (3.5-5.0); Alkaline Phosphatase 90 U/L (38-126); Anion Gap 10 mmol/L; Blood Urea Nitrogen 20 mg/dL (9-20); Calcium 9.3 mg/dL (8.4-10.2); Carbon Dioxide 25 mmol/L (22-30); Chloride 106 mmol/L (98-107); Glucose 134 mg/dL (74-99); Potassium 4.4 mmol/L (3.5-5.1); Sodium 141 mmol/L (137-145); Total Bilirubin 0.4 mg/dL (0.2-1.3); Total Protein 6.3 g/dL (6.3-8.2)
--- NOTE | 2018-09-27 19:10 | ED ---
General Adult HPI - General Chief complaint: Recheck/Abnormal Lab/Rx Stated complaint: rt foot diabetic ulcer Time Seen by Provider: 09/27/18 18:19 Source: patient Mode of arrival: ambulatory Limitations: no limitations - History of Present Illness Initial comments: 78-year-old male patient presents to the emergency department today for evaluation of a wound to the right great toe. Patient states he has been having issues with the toe for the last 3 weeks. States he did see his primary care physician was started on Augmentin today. States he did see a ferry terminal agent to became concerned and wanted him sent to the hospital for admission for wound care, antibiotics, and vascular consult. Patient denies any fevers or chills with this. Denies any pain to the area as he does have peripheral neuropathy. Patient denies any recent rash, shortness breath, chest pain, abdominal pain, nausea, vomiting, diarrhea, constipation, back pain, numbness, tingling, dizziness, weakness, hematuria, dysuria, urinary urgency, urinary frequency, headache, visual changes, or any other complaints. - Related Data Home Medications Medication Instructions Recorded Confirmed Cholecalciferol [Vitamin D3] 5,000 unit PO DAILY 05/25/18 09/27/18 Donepezil [Aricept] 10 mg PO HS 05/25/18 09/27/18 Enalapril [Vasotec] 10 mg PO DAILY 05/25/18 09/27/18 Insulin Glargine,Hum.rec.anlog 28 unit SQ QAM 05/25/18 09/27/18 [Lantus Solostar] Magnesium Oxide [Mag-Ox] 400 mg PO BID 05/25/18 09/27/18 Meclizine [Antivert] 25 mg PO DAILY 05/25/18 09/27/18 Oxybutynin Chloride [Ditropan] 5 mg PO BID 05/25/18 09/27/18 amLODIPine [Norvasc] 10 mg PO DAILY 05/25/18 09/27/18 metFORMIN HCL [Glucophage] 500 mg PO BID 05/25/18 09/27/18 Amoxic-Pot Clav 875-125Mg 1 tab PO Q12HR 09/27/18 09/27/18 [Augmentin 875-125] Dipyridamole-Aspirin 200-25 mg 1 cap PO BID 09/27/18 09/27/18 [Aggrenox] Ibuprofen [Motrin] 600 mg PO Q8HR PRN 09/27/18 09/27/18 Latanoprost/Pf [Latanoprost 0.005% 1 drop BOTH EYES HS 09/27/18 09/27/18 Eye Drop] Allergies Allergy/AdvReac Type Severity Reaction Status Date / Time No Known Allergies Allergy Verified 09/27/18 18:23 Review of Systems ROS Statement: Those systems with pertinent positive or pertinent negative responses have been documented in the HPI. ROS Other: All systems not noted in ROS Statement are negative. Past Medical History Past Medical History: CVA/TIA, Diabetes Mellitus, Hypertension, Memory Impairment, Musculoskeletal Disorder Additional Past Medical History / Comment(s): urinary incontinence, pain down both legs, stroke several years ago per spouse but pt. denies, vertigo History of Any Multi-Drug Resistant Organisms: None Reported Past Surgical History: Orthopedic Surgery Additional Past Surgical History / Comment(s): left baby toe amputated, carpal tunel repair, pain procedures Past Anesthesia/Blood Transfusion Reactions: No Reported Reaction Past Psychological History: No Psychological Hx Reported Smoking Status: Former smoker Past Alcohol Use History: Occasional Past Drug Use History: None Reported - Past Family History Mother History Unknown: Yes Family Medical History: No Reported History Father History Unknown: Yes General Exam Limitations: no limitations General appearance: alert, in no apparent distress, other (This is a well- developed, well-nourished elderly male patient in no acute distress. Vital signs upon presentation are temperature 97.3F, pulse 69, respirations 18, blood pressure 158/64, pulse ox 97% on room air.) Respiratory exam: Present: normal lung sounds bilaterally. Absent: respiratory distress, wheezes, rales, rhonchi, stridor Cardiovascular Exam: Present: regular rate, normal rhythm, normal heart sounds. Absent: systolic murmur, diastolic murmur, rubs, gallop, clicks GI/Abdominal exam: Present: soft, normal bowel sounds. Absent: distended, tenderness, guarding, rebound, rigid Extremities exam: Present: full ROM, normal capillary refill, other (Patient has pressure/vascular ulcer to the distal tip of the right great toe. There is central area of necrosis. Purulent drainage noted to bandage. There is circumferential toe erythema and swelling. Remainder of foot is pink, warm, and dry. Cap refills less than 3 seconds. Pedal pulses 2+ and equal bilaterally.) . Absent: normal inspection, tenderness, pedal edema, joint swelling, calf tenderness Neurological exam: Present: alert, oriented X3, CN II-XII intact Psychiatric exam: Present: normal affect, normal mood Skin exam: Present: warm, dry, intact, normal color. Absent: rash Course Vital Signs 09/27/18 09/27/18 09/27/18 18:11 20:25 20:36 Temperature 97.3 F L Pulse Rate 69 57 L Respiratory 18 18 Rate Blood Pressure 158/64 150/73 O2 Sat by Pulse 97 98 Oximetry Medical Decision Making - Medical Decision Making 78-year-old male patient presents the emergency department today for evaluation of wound to the distal tip of the right great toe. Physical examination did reveal evidence of a pressure/vascular type wound to the distal tip of the right great toe. There is surrounding cellulitis and swelling to the toe. There was a central area of necrosis. Labs reviewed and are unremarkable. Given state of the wound and the presence of sialitis will admit patient to the hospital for IV antibiotics, wound care consult, and vascular consult. Did discuss results and plan with the patient, he is agreeable. - Lab Data Result diagrams: 09/27/18 18:00 09/27/18 18:00 Lab Results 09/27/18 09/27/18 Range/Units 18:00 18:00 WBC 8.2 (3.8-10.6) k/uL RBC 3.95 L (4.30-5.90) m/uL Hgb 12.6 L (13.0-17.5) gm/dL Hct 36.9 L (39.0-53.0) % MCV 93.4 (80.0-100.0) fL MCH 31.9 (25.0-35.0) pg MCHC 34.2 (31.0-37.0) g/dL RDW 12.5 (11.5-15.5) % Plt Count 233 (150-450) k/uL Neutrophils % 59 % Lymphocytes % 34 % Monocytes % 4 % Eosinophils % 1 % Basophils % 0 % Neutrophils # 4.8 (1.3-7.7) k/uL Lymphocytes # 2.8 (1.0-4.8) k/uL Monocytes # 0.4 (0-1.0) k/uL Eosinophils # 0.1 (0-0.7) k/uL Basophils # 0.0 (0-0.2) k/uL Sodium 141 (137-145) mmol/L Potassium 4.4 (3.5-5.1) mmol/L Chloride 106 (98-107) mmol/L Carbon Dioxide 25 (22-30) mmol/L Anion Gap 10 mmol/L BUN 20 (9-20) mg/dL Creatinine 0.84 (0.66-1.25) mg/dL Est GFR (CKD-EPI)AfAm >90 (>60 ml/min/1.73 sqM) Est GFR (CKD-EPI)NonAf 85 (>60 ml/min/1.73 sqM) Glucose 134 H (74-99) mg/dL Calcium 9.3 (8.4-10.2) mg/dL Total Bilirubin 0.4 (0.2-1.3) mg/dL AST 23 (17-59) U/L ALT 41 (21-72) U/L Alkaline Phosphatase 90 (38-126) U/L Total Protein 6.3 (6.3-8.2) g/dL Albumin 3.7 (3.5-5.0) g/dL - Radiology Data Radiology results: report reviewed, image reviewed 3 views of the right great toe were obtained. There is soft tissue deformity consistent with ulceration at the tip of the big toe. See no fracture or dislocation. This no focal bone destruction. There is vascular calcification. Impression by Dr. Andre shows soft tissue deformity. No evidence of osteomyelitis Disposition Clinical Impression: Open wound of right great toe, Cellulitis of right foot Disposition: ADMITTED IP TO THIS [facility] Condition: Serious Decision to Admit Reason: Admit from EC Decision Date: 09/27/18 Decision Time: 19:55
[2018-09-27] MEDS ORDERED: NALOXONE 0.4 MG/ML 1 ML VIAL IV PRN (19:52)
[2018-09-27] MEDS ORDERED: ACETAMINOPHEN TAB 325 MG TAB PO PRN (19:52)
[2018-09-27] MEDS ORDERED: IBUPROFEN 600 MG TAB PO PRN (19:53)
[2018-09-27] MEDS ORDERED: ceFAZolin 1,000 MG in DEXTROSE/WATER 1 50ML.BAG IVPB STA (19:56)
[2018-09-27] MEDS ORDERED: AMOXIC-POT CLAV 875-125MG 1 EACH TAB PO SCH (21:00)
--- NOTE | 2018-09-27 21:26 | XR ---
EXAMINATION TYPE: XR toes RT DATE OF EXAM: 09/27/2018 COMPARISON: NONE HISTORY: Cellulitis TECHNIQUE: 3 views FINDINGS: There is some soft tissue deformity consistent with ulceration at the tip of the big toe. I see no fracture nor dislocation. There is no focal bone destruction. There is vascular calcification . IMPRESSION: Soft tissue deformity. No evidence of osteomyelitis.
[2018-09-27 22:21] LABS: Glucose,Whole Blood 206 mg/dL (75-99)
[2018-09-27] MEDS: MAGNESIUM OXIDE 400 MG TAB PO SCH (22:50)
[2018-09-27] MEDS: LATANOPROST 0.005% OPHTH DROPS 2.5 ML BTL BOTH EYES SCH (22:50)
[2018-09-27] MEDS: metFORMIN 500 MG TAB PO SCH (22:50)
[2018-09-27] MEDS: DONEPEZIL 10 MG TAB PO SCH (22:50)
[2018-09-27] MEDS: DIPYRIDAMOLE-ASPIRIN 200-25 MG 1 EACH CPMP.12HR PO SCH (22:51)
[2018-09-27] MEDS: OXYBUTYNIN CHLORIDE 5 MG TAB PO SCH (22:51)
[2018-09-28] MEDS: ceFAZolin 1,000 MG in DEXTROSE/WATER 1 50ML.BAG IVPB SCH ×3 (00:39→14:04)
[2018-09-28 06:57] LABS: Glucose,Whole Blood 133 mg/dL (75-99)
[2018-09-28] MEDS: metFORMIN 500 MG TAB PO SCH ×2 (07:16→21:01)
[2018-09-28] MEDS: LISINOPRIL 20 MG TAB PO SCH (07:16)
[2018-09-28] MEDS: OXYBUTYNIN CHLORIDE 5 MG TAB PO SCH ×2 (07:16→21:01)
[2018-09-28] MEDS: MECLIZINE 25 MG TAB PO SCH (07:16)
[2018-09-28] MEDS: amLODIPine 10 MG TAB PO SCH (07:16)
[2018-09-28] MEDS: MAGNESIUM OXIDE 400 MG TAB PO SCH ×2 (07:17→21:01)
[2018-09-28] MEDS: DIPYRIDAMOLE-ASPIRIN 200-25 MG 1 EACH CPMP.12HR PO SCH ×2 (07:17→21:01)
[2018-09-28] MEDS: INSULIN DETEMIR 100 UNIT/ML 10 ML VIAL SQ SCH (09:12)
[2018-09-28 11:29] LABS: Glucose,Whole Blood 169 mg/dL (75-99)
[2018-09-28] MEDS: CHOLECALCIFEROL 1,000 UNIT TAB PO SCH (12:09)
--- NOTE | 2018-09-28 14:45 | P.CONS ---
History of Present Illness - Reason for Consult Consult date: 09/28/18 Wound evaluation - History of Present Illness This is a 78-year-old male patient is known to ID service as he was seen many years ago for a left fifth toe chronic wound and underwent amputation with Dr. Lee. 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 He saw a primary care physician 4 days ago and started Augmentin and following that he saw Dr. Garcia, integrated logistics programs director, in [place] and was referred to the hospital for IV antibiotic and treatment. Patient denies having any fever or chills. He denies any loss of appetite, muscle aches, nausea, vomiting or diarrhea. He states blood sugars been running normal and if anything were on the low side less than 100. His last hemoglobin A1c done in May was 6.7. Patient presented to [facility] emergency center was found to be afebrile, white count 8.2, creatinine 0.84, albumin 3.7. X-ray of the toes showed soft tissue swelling with no osteomyelitis. Patient was started on Kefzol [facility] Review of Systems All systems: negative Constitutional: Denies anorexia, Denies chills, Denies fatigue, Denies fever, Denies lethargy, Denies malaise, Denies poor appetite, Denies weakness, Denies weight loss Eyes: denies blurred vision, denies pain Ears, nose, mouth and throat: Denies dysphagia, Denies headache, Denies sore throat, Denies vertigo Cardiovascular: Denies chest pain, Denies decreased exercise tolerance, Denies dyspnea on exertion, Denies edema, Denies leg edema, Denies lightheadedness, Denies palpitations, Denies shortness of breath, Denies syncope Respiratory: Denies congestion, Denies cough, Denies cough with sputum, Denies dyspnea, Denies excessive sputum, Denies hemoptysis, Denies home oxygen, Denies wheezing Gastrointestinal: Reports constipation, Denies abdominal pain, Denies diarrhea, Denies loss of appetite, Denies melena, Denies nausea, Denies vomiting Genitourinary: Denies dysuria Musculoskeletal: Denies frequent falls, Denies gait dysfunction, Denies muscle weakness, Denies myalgias Integumentary: Reports wounds, Denies pruritus, Denies rash Neurological: Denies change in mentation, Denies confusion, Denies head injury, Denies headaches, Denies numbness, Denies weakness Psychiatric: Denies anxiety, Denies depression Endocrine: Denies fatigue, Denies weight change Past Medical History Past Medical History: CVA/TIA, Diabetes Mellitus, Hypertension, Memory Impairment, Musculoskeletal Disorder Additional Past Medical History / Comment(s): urinary incontinence, pain down both legs, stroke several years ago per spouse but pt. denies, vertigo History of Any Multi-Drug Resistant Organisms: None Reported Past Surgical History: Orthopedic Surgery Additional Past Surgical History / Comment(s): left baby toe amputated, carpal tunel repair, pain procedures Past Anesthesia/Blood Transfusion Reactions: No Reported Reaction Past Psychological History: No Psychological Hx Reported Smoking Status: Former smoker Past Alcohol Use History: Occasional Additional Past Alcohol Use History / Comment(s): Patient was a smoker and quit more than 20 years ago. He lives at home with his . 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 No pets in the home. Past Drug Use History: None Reported - Past Family History Mother History Unknown: Yes Family Medical History: No Reported History Additional Family Medical History / Comment(s): "heart problems" Father History Unknown: Yes Medications and Allergies Home Medications Medication Instructions Recorded Confirmed Type Cholecalciferol [Vitamin D3] 5,000 unit PO DAILY 05/25/18 09/27/18 History Donepezil [Aricept] 10 mg PO HS 05/25/18 09/27/18 History Enalapril [Vasotec] 10 mg PO DAILY 05/25/18 09/27/18 History Insulin Glargine,Hum.rec.anlog 28 unit SQ QAM 05/25/18 09/27/18 History [Lantus Solostar] Magnesium Oxide [Mag-Ox] 400 mg PO BID 05/25/18 09/27/18 History Meclizine [Antivert] 25 mg PO DAILY 05/25/18 09/27/18 History Oxybutynin Chloride [Ditropan] 5 mg PO BID 05/25/18 09/27/18 History amLODIPine [Norvasc] 10 mg PO DAILY 05/25/18 09/27/18 History metFORMIN HCL [Glucophage] 500 mg PO BID 05/25/18 09/27/18 History Amoxic-Pot Clav 875-125Mg 1 tab PO Q12HR 09/27/18 09/27/18 History [Augmentin 875-125] Dipyridamole-Aspirin 200-25 mg 1 cap PO BID 09/27/18 09/27/18 History [Aggrenox] Ibuprofen [Motrin] 600 mg PO Q8HR PRN 09/27/18 09/27/18 History Latanoprost/Pf [Latanoprost 0.005% 1 drop BOTH EYES HS 09/27/18 09/27/18 History Eye Drop] Allergies Allergy/AdvReac Type Severity Reaction Status Date / Time No Known Allergies Allergy Verified 09/27/18 18:23 Physical Exam Vitals: Vital Signs Temp Pulse Pulse Resp BP BP Pulse Ox 09/28/18 12:40 98.3 F 63 17 138/62 96 09/28/18 08:00 63 16 09/28/18 05:18 98 F 63 16 146/66 95 09/28/18 00:00 16 09/27/18 22:26 97.5 F L 55 L 16 149/66 97 09/27/18 20:36 150/73 09/27/18 20:25 57 L 18 98 09/27/18 18:11 97.3 F L 69 18 158/64 97 Intake and Output 09/27/18 09/28/18 09/28/18 22:59 06:59 14:59 Intake Total 240 340 240 Output Total 280 Balance 240 60 240 Intake: Intake, IV Titration 100 Amount ceFAZolin 1,000 mg In 50 Dextrose/Water 1 50ml.bag @ 100 mls/hr IVPB ONCE STA Rx#:[id number] ceFAZolin 1,000 mg In 50 Dextrose/Water 1 50ml.bag @ 100 mls/hr IVPB Q6HR [facility] Rx#:[id number] Oral 240 240 240 Output: Urine 280 Other: Voiding Method Toilet Toilet Urinal Urinal # Voids 2 2 2 Weight 104.326 kg Gen: This is a 78-year-old male. He is sitting up in bed appears to be comfortable and in no acute distress. HEENT: Head is atraumatic, normocephalic. Pupils equal, round. Sclerae is anicteric. Conjunctiva slightly pale. Mucous members of the mouth are moist. No thrush noted. NECK: Supple. No JVD. No lymphadenopathy. No thyromegaly. LUNGS: Clear to auscultation. No wheezes or rhonchi. No intercostal retractions. HEART: Regular rate and rhythm. No murmur. ABDOMEN: Soft. Bowel sounds are present. No masses. No tenderness. EXTREMITIES: No pedal edema. No calf tenderness. Dorsalis pedis +2 bilaterally. Patient has a ulcer to the distal right great toe with some erythema to the right great toe. No active drainage. No foul order. Onychomycosis noted bilaterally. NEUROLOGICAL: Patient is awake, alert and oriented x3. Cranial nerves 2 through 12 are grossly intact. Results Results: Laboratory Results WBC 8.2 k/uL (3.8-10.6) 09/27/18 18:00 RBC 3.95 m/uL (4.30-5.90) L 09/27/18 18:00 Hgb 12.6 gm/dL (13.0-17.5) L 09/27/18 18:00 Hct 36.9 % (39.0-53.0) L 09/27/18 18:00 MCV 93.4 fL (80.0-100.0) 09/27/18 18:00 MCH 31.9 pg (25.0-35.0) 09/27/18 18:00 MCHC 34.2 g/dL (31.0-37.0) 09/27/18 18:00 RDW 12.5 % (11.5-15.5) 09/27/18 18:00 Plt Count 233 k/uL (150-450) 09/27/18 18:00 Neutrophils % 59 % 09/27/18 18:00 Lymphocytes % 34 % 09/27/18 18:00 Monocytes % 4 % 09/27/18 18:00 Eosinophils % 1 % 09/27/18 18:00 Basophils % 0 % 09/27/18 18:00 Neutrophils # 4.8 k/uL (1.3-7.7) 09/27/18 18:00 Lymphocytes # 2.8 k/uL (1.0-4.8) 09/27/18 18:00 Monocytes # 0.4 k/uL (0-1.0) 09/27/18 18:00 Eosinophils # 0.1 k/uL (0-0.7) 09/27/18 18:00 Basophils # 0.0 k/uL (0-0.2) 09/27/18 18:00 Sodium 141 mmol/L (137-145) 09/27/18 18:00 Potassium 4.4 mmol/L (3.5-5.1) 09/27/18 18:00 Chloride 106 mmol/L (98-107) 09/27/18 18:00 Carbon Dioxide 25 mmol/L (22-30) 09/27/18 18:00 Anion Gap 10 mmol/L 09/27/18 18:00 BUN 20 mg/dL (9-20) 09/27/18 18:00 Creatinine 0.84 mg/dL (0.66-1.25) 09/27/18 18:00 Est GFR (CKD-EPI)AfAm >90 (>60 ml/min/1.73 sqM) 09/27/18 18:00 Est GFR (CKD-EPI)NonAf 85 (>60 ml/min/1.73 sqM) 09/27/18 18:00 Glucose 134 mg/dL (74-99) H 09/27/18 18:00 POC Glucose (mg/dL) 169 mg/dL (75-99) H 09/28/18 11:28 POC Glu Zipper Measurer ID Sanaz Akins 09/28/18 11:28 Calcium 9.3 mg/dL (8.4-10.2) 09/27/18 18:00 Total Bilirubin 0.4 mg/dL (0.2-1.3) 09/27/18 18:00 AST 23 U/L (17-59) 09/27/18 18:00 ALT 41 U/L (21-72) 09/27/18 18:00 Alkaline Phosphatase 90 U/L (38-126) 09/27/18 18:00 Total Protein 6.3 g/dL (6.3-8.2) 09/27/18 18:00 Albumin 3.7 g/dL (3.5-5.0) 09/27/18 18:00 CBC & Chem 7: 09/27/18 18:00 12/04/18 18:00 Labs: Abnormal Lab Results - Last 24 Hours (Table) 09/27/18 09/27/18 09/27/18 Range/Units 18:00 18:00 22:19 RBC 3.95 L (4.30-5.90) m/uL Hgb 12.6 L (13.0-17.5) gm/dL Hct 36.9 L (39.0-53.0) % Glucose 134 H (74-99) mg/dL POC Glucose (mg/dL) 206 H (75-99) mg/dL 09/28/18 09/28/18 Range/Units 06:56 11:28 RBC (4.30-5.90) m/uL Hgb (13.0-17.5) gm/dL Hct (39.0-53.0) % Glucose (74-99) mg/dL POC Glucose (mg/dL) 133 H 169 H (75-99) mg/dL Assessment and Plan Plan: This is a 78-year-old male patient who presented to the hospital with a diabetic ulcer to the right great toe. Toe x-ray show no signs of osteomyelitis. We will plan for MRI of the toe for further evaluation for osteomyelitis. Patient is on Kefzol and this will be altered to Zosyn. Further recommendations as patient progresses. Continue supportive care. The above dictated assessment and findings were discussed with Dr. Hinds. The impression and plan of care have been directed as dictated. Opal Eckert nurse practitioner acting as scribe for Dr. Hinds.
[2018-09-28] MEDS ORDERED: ONDANSETRON 4 MG/2 ML VIAL IVP PRN (16:03)
[2018-09-28] MEDS ORDERED: MELATONIN 3 MG TABLET PO PRN (16:03)
[2018-09-28] MEDS ORDERED: CALCIUM CARBONATE 500 MG CHEWABLE PO PRN (16:03)
[2018-09-28] MEDS ORDERED: LACTULOSE 20 GM/30 ML CUP PO PRN (16:03)
[2018-09-28] MEDS ORDERED: MAGNESIUM HYDROXIDE 2,400 MG/10 ML CUP PO PRN (16:03)
[2018-09-28] MEDS ORDERED: ALPRAZolam 0.25 MG TAB PO PRN (16:03)
[2018-09-28 17:01] LABS: Hemoglobin A1C 6.6 % (4.0-6.0)
[2018-09-28 17:35] LABS: Glucose,Whole Blood 120 mg/dL (75-99)
[2018-09-28] MEDS: INSULIN ASPART 100 UNIT/ML 1 ML 10 ML VIAL SQ SCH ×2 (17:54→20:59)
[2018-09-28] MEDS: ENOXAPARIN 40 MG/0.4 ML SYRINGE SQ SCH (17:56)
--- NOTE | 2018-09-28 18:19 | HP ---
HISTORY AND PHYSICAL DATE OF ADMISSION: 09/27/2018 DATE OF SERVICE: 09/28/2018 PRESENTING COMPLAINT: Right toe wound. HISTORY OF PRESENTING COMPLAINT: This is a very pleasant 78-year-old patient of Dr. Sorto. Chronic stable medical conditions include diabetes, hypertension, urinary incontinence, cognitive impairment and peripheral neuropathy. Patient started off with a right foot toe infection that started off with a blister and has progressed over the course of 4 weeks. Denies any pain. Appetite is fair. No fever or chills. Patient did see his family doctor, who started him on antibiotics, which did not help. He also saw a dj instructor, Dr. Garcia, who decided to send this patient in. There has been no obvious drainage. The patient was admitted for the same. He was started in the ER on IV Ancef. Infectious Disease, Dr. Hinds, was consulted earlier, who did start the patient on IV Zosyn. Also an MRI of the foot has been ordered. The patient otherwise is lying in bed, comfortable. REVIEW OF SYSTEMS: CONSTITUTIONAL: None. HEENT: None. RESPIRATORY: None. CARDIOVASCULAR: None. GASTROINTESTINAL: None. GENITOURINARY: Urinary incontinence. MUSCULOSKELETAL: None. DERMATOLOGICAL: As above. LYMPHATICS: None. PSYCHIATRY: Forgetful. NEUROLOGICAL: Numbness in both feet. PAST MEDICAL HISTORY: 1. Stroke 9 years ago, recovered. 2. Diabetes. 3. Hypertension. 4. Urinary incontinence. 5. Cognitive impairment. 6. Peripheral neuropathy. 7. Arthritis with occasional pain down both legs. PAST SURGICAL HISTORY: 1. Left foot baby toe amputated. 2. Carpal tunnel repair. 3. Pain procedures. 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 History of smoking; quit more than 20 years ago. . Alcohol occasionally. FAMILY HISTORY: Heart problems. HOME MEDICATIONS: 1. Augmentin 1 tablet p.o. q.12. 2. Latanoprost 0.005% drops 1 drop to both eyes at bedtime. 3. Motrin 600 mg q.8 p.r.n. 4. Aricept 10 mg at bedtime. 5. Glucophage 500 mg p.o. b.i.d. 6. Norvasc 10 mg p.o. daily. 7. Ditropan 5 mg p.o. b.i.d. 8. Antivert 25 mg p.o. daily. 9. Magnesium oxide 400 mg b.i.d. 10.Lantus 28 units subcutaneously in the morning. 11.Vasotec 10 mg p.o. daily. 12.Aggrenox 1 capsule p.o. b.i.d. 13.Vitamin D3 5000 units p.o. daily. ALLERGIES: NONE. PHYSICAL EXAMINATION: VITAL SIGNS ON PRESENTATION: Temperature 97.3, pulse 69, respiration 18, blood pressure 158/64, pulse ox 97% on room air. GENERAL APPEARANCE: Average build. BMI 30.3. Lying in bed, comfortable. EYES: Pupils equal. Conjunctivae normal. HEENT: External appearance of nose and ears normal. Oral cavity normal. Slightly decreased hearing. NECK: JVD not raised. Mass not palpable. RESPIRATORY: Effort normal. LUNGS: Slightly decreased breath sounds. CARDIOVASCULAR: First and second sounds normal. No edema. ABDOMEN: Soft, non-tender. Liver and spleen not palpable. LYMPHATIC: No lymph node palpable in neck or axillae. PSYCHIATRY: Patient is able to answer simple questions. Slightly slow. NEUROLOGICAL: Pupils equal. Cranial nerves grossly intact. Decreased sensation distally. Patient's pedal pulses are feeble. INVESTIGATIONS: White count 8.2, hemoglobin 12.6, potassium 4.6. BUN and creatinine are normal. Accu- Cheks are noted. ASSESSMENT: 1. Right big toe ulcer secondary to diabetes and peripheral neuropathy, having failed outpatient treatment. Need to rule out osteomyelitis. 2. Diabetes mellitus, type 2, with peripheral neuropathy. 3. Essential hypertension. 4. Mild cognitive impairment, probably due to late-onset Alzheimer's dementia. 5. Chronic urinary incontinence. PLAN: Home medications are resumed. Will give Lovenox for DVT prophylaxis. Patient is put on IV Zosyn. MRA of the foot is also ordered by Dr. Hinds, and he was consulted for the same. Care was discussed with the patient. Questions were answered. MMODL / IJN: [id number] /
[2018-09-28] MEDS: PIPERACILLIN-TAZOBACTAM 3.375 GM in SODIUM CHLORIDE 0.9% 100 ML IVPB SCH ×2 (18:36→23:06)
--- NOTE | 2018-09-28 19:11 | MR ---
EXAMINATION TYPE: MR foot RT wo/w con DATE OF EXAM: 09/28/2018 COMPARISON: None HISTORY: Rt great toe osteomyelitis CONTRAST: Standard multiplanar, multisequence MRI departmental protocol utilizing 10 mL intravenous Gadavist ga dolinium contrast. FINDINGS: On the STIR images there is abnormal increased signal throughout most of the distal phalanx of the big toe consistent with edema. I see no fracture line. There is also small area of increased signal in the subchondral distal and of the proximal phalanx of the big toe. There is mild hallux aleena kayla. The metatarsals are intact. I see no pathologic enhancement. There is some soft tissue swelling in the forefoot. IMPRESSION: The exam shows edema in the distal phalanx of the big toe consistent with osteomyelitis. No fracture. Subcutaneous edema consistent with cellulitis.
[2018-09-28 20:18] LABS: Glucose,Whole Blood 145 mg/dL (75-99)
[2018-09-28] MEDS: LATANOPROST 0.005% OPHTH DROPS 2.5 ML BTL BOTH EYES SCH (21:01)
[2018-09-28] MEDS: DONEPEZIL 10 MG TAB PO SCH (21:01)
--- NOTE | 2018-09-28 23:35 | P.CON ---
Consult Note - . Consult date: 09/28/18 Assessment/Plan:: This is a 78-year-old male patient is known to ID service as he was seen many years ago for a left fifth toe chronic wound and underwent amputation with Dr. Lee. 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 He saw a primary care physician 4 days ago and started Augmentin and following that he saw Dr. Garcia, propeller driven airplane mechanic, in [place] and was referred to the hospital for IV antibiotic and treatment. Patient denies having any fever or chills. He denies any loss of appetite, muscle aches, nausea, vomiting or diarrhea. He states blood sugars been running normal and if anything were on the low side less than 100. His last hemoglobin A1c done in May was 6.7. Patient presented to [facility] emergency center was found to be afebrile, white count 8.2, creatinine 0.84, albumin 3.7. X-ray of the toes showed soft tissue swelling with no osteomyelitis. Patient was started on Kefzol and admitted to the [facility] floor. Please see the consult note is dictated by nurse practitioner Mrs. Opal Eckert. This 78-year-old gentleman relates that he's had some decline of his status as of late. He had recent back surgery and that his certainly reduce his mobility. Does not recall any specific trauma to the right great toe but has a significant ulceration to its tip. Given the concern for osteomyelitis and MRI has been requested to evaluate for underlying bony infection. This will help determine the course of therapy. We' ll request Santyl ointment to be applied each morning to the ulceration. He will need to offload this more specifically. Would ideally follow up in the wound healing Center. Potential candidate for total contact cast, antibiotic therapy with Zosyn for now pending further data. I agree with evaluation, assessment and plan as dictated by nurse practitioner Mrs. Opal Eckert..
[2018-09-29 07:15] LABS: Glucose,Whole Blood 121 mg/dL (75-99)
[2018-09-29] MEDS: INSULIN ASPART 100 UNIT/ML 1 ML 10 ML VIAL SQ SCH ×4 (07:26→20:44)
[2018-09-29] MEDS: PIPERACILLIN-TAZOBACTAM 3.375 GM in SODIUM CHLORIDE 0.9% 100 ML IVPB SCH ×2 (08:00→17:22)
[2018-09-29] MEDS: amLODIPine 10 MG TAB PO SCH (08:00)
[2018-09-29] MEDS: COLLAGENASE 250 UNIT/GM OINTMENT 30 GM TUBE TOPICAL SCH (08:00)
[2018-09-29] MEDS: DIPYRIDAMOLE-ASPIRIN 200-25 MG 1 EACH CPMP.12HR PO SCH ×2 (08:01→20:44)
[2018-09-29] MEDS: ENOXAPARIN 40 MG/0.4 ML SYRINGE SQ SCH (08:01)
[2018-09-29] MEDS: LISINOPRIL 20 MG TAB PO SCH (08:02)
[2018-09-29] MEDS: INSULIN DETEMIR 100 UNIT/ML 10 ML VIAL SQ SCH (08:02)
[2018-09-29] MEDS: MAGNESIUM OXIDE 400 MG TAB PO SCH ×2 (08:02→20:44)
[2018-09-29] MEDS: MECLIZINE 25 MG TAB PO SCH (08:03)
[2018-09-29] MEDS: metFORMIN 500 MG TAB PO SCH ×2 (08:03→20:44)
[2018-09-29] MEDS: OXYBUTYNIN CHLORIDE 5 MG TAB PO SCH ×2 (08:04→20:44)
[2018-09-29 12:18] LABS: Glucose,Whole Blood 96 mg/dL (75-99)
[2018-09-29] MEDS: CHOLECALCIFEROL 1,000 UNIT TAB PO SCH (14:48)
[2018-09-29 17:29] LABS: Glucose,Whole Blood 135 mg/dL (75-99)
[2018-09-29 20:09] LABS: Glucose,Whole Blood 146 mg/dL (75-99)
[2018-09-29] MEDS: DONEPEZIL 10 MG TAB PO SCH (20:44)
[2018-09-29] MEDS: LATANOPROST 0.005% OPHTH DROPS 2.5 ML BTL BOTH EYES SCH (20:44)
--- NOTE | 2018-09-29 20:53 | PN ---
PROGRESS NOTE DATE OF SERVICE: 09/29/2018 PRESENTING COMPLAINT: Right big toe wound. INTERVAL HISTORY: This patient presented with a right big toe wound with neuropathy, not many symptoms. Has been on IV antibiotic, including IV Zosyn. MRI of the foot is showing osteomyelitis, being followed by Dr. Hinds. No new issues today. REVIEW OF SYSTEMS: Done for constitutional, cardiovascular, GI, pulmonary; relevant findings as above. CURRENT MEDICATIONS: Reviewed. They include IV Zosyn. PHYSICAL EXAMINATION: Temperature 98.3, pulse 70, respiration 20, blood pressure 147/73, pulse ox 94% on room air. GENERAL APPEARANCE: Lying in bed, comfortable. EYES: Pupils equal. Conjunctivae normal. NECK: JVD not raised. Mass not palpable. RESPIRATORY: Effort normal. LUNGS: Decreased breath sounds. CARDIOVASCULAR: First and second sounds normal. No edema. ABDOMEN: Soft, non-tender. Liver and spleen not palpable. PSYCHIATRY: Alert and oriented x3. Mood and affect normal. EXTREMITIES: Right big toe wound. INVESTIGATIONS: Accu-Cheks are noted. ASSESSMENT: 1. Right big toe distal phalanx osteomyelitis . 2. Right big toe cellulitis. 3. Diabetes mellitus, type 2, with peripheral neuropathy. 4. Essential hypertension. 5. Mild cognitive impairment, probably due to late-onset Alzheimer's dementia. 6. Chronic urine incontinence. PLAN: Continue with IV Zosyn. Other medications are to continue. Care was discussed with the patient. Will follow with Dr. Hinds. MMOSMINL / IJN: [id number] /
--- NOTE | 2018-09-29 23:09 | P.PN ---
Subjective Progress Note Date: 09/29/18 This is a 78-year-old male patient is known to ID service as he was seen many years ago for a left fifth toe chronic wound and underwent amputation with Dr. Lee. 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 He saw a primary care physician 4 days ago and started Augmentin and following that he saw Dr. Garcia, sales office manager, in [place] and was referred to the hospital for IV antibiotic and treatment. Patient denies having any fever or chills. He denies any loss of appetite, muscle aches, nausea, vomiting or diarrhea. He states blood sugars been running normal and if anything were on the low side less than 100. His last hemoglobin A1c done in May was 6.7. Patient presented to [facility] emergency center was found to be afebrile, white count 8.2, creatinine 0.84, albumin 3.7. X-ray of the toes showed soft tissue swelling with no osteomyelitis. Patient was started on Kefzol and admitted to the Med[facility] floor. 09/29/2018 patient is feeling about the same. Lites is overall is not feeling very well. In his status continues to decline over this last year especially after his back surgery. Objective - Vital Signs Vital signs: Vital Signs Temp 97.6 F 09/29/18 20:39 Pulse 65 09/29/18 20:39 Resp 18 09/29/18 20:39 BP 169/66 09/29/18 20:39 Pulse Ox 94 L 09/29/18 20:39 Intake & Output 09/29/18 09/29/18 09/30/18 06:59 18:59 06:59 Intake Total 300 100 75 Output Total 450 Balance -150 100 75 Intake: Intake, IV Titration 100 100 75 Amount Piperacillin-Tazobactam 3 100 100 75 .375 gm In Sodium Chloride 0.9% 100 ml @ 25 mls/hr IVPB Q8HR DIONE Rx# :[id number] Oral 200 Output: Urine 450 Other: Voiding Method Toilet Toilet Urinal Urinal # Voids 1 # Bowel Movements 1 - Exam Gen: This is a 78-year-old male. He is sitting up in bed appears to be comfortable and in no acute distress. HEENT: Head is atraumatic, normocephalic. Pupils equal, round. Sclerae is anicteric. Conjunctiva slightly pale. Mucous members of the mouth are moist. No thrush noted. NECK: Supple. No JVD. No lymphadenopathy. No thyromegaly. LUNGS: Clear to auscultation. No wheezes or rhonchi. No intercostal retractions. HEART: Regular rate and rhythm. No murmur. ABDOMEN: Soft. Bowel sounds are present. No masses. No tenderness. EXTREMITIES: No pedal edema. No calf tenderness. Dorsalis pedis +2 bilaterally. Patient has a ulcer which is diabetic in nature eschar present unstageable to the distal right great toe with some erythema to the right great toe. No active drainage. No foul order. Onychomycosis noted bilaterally. NEUROLOGICAL: Patient is awake, alert and oriented x3. Cranial nerves 2 through 12 are grossly intact. But does have evidence of dense neuropathy to the bilateral feet. - Labs CBC & Chem 7: 09/27/18 18:00 09/27/18 18:00 Labs: Abnormal Lab Results - Last 24 Hours (Table) 09/29/18 09/29/18 09/29/18 Range/Units 07:13 17:27 20:08 POC Glucose (mg/dL) 121 H 135 H 146 H (75-99) mg/dL Microbiology - Last 24 Hours (Table) 09/27/18 18:00 Blood Culture - Preliminary Blood No Growth after 48 hours Laboratory Results WBC 8.2 k/uL (3.8-10.6) 09/27/18 18:00 RBC 3.95 m/uL (4.30-5.90) L 09/27/18 18:00 Hgb 12.6 gm/dL (13.0-17.5) L 09/27/18 18:00 Hct 36.9 % (39.0-53.0) L 09/27/18 18:00 MCV 93.4 fL (80.0-100.0) 09/27/18 18:00 MCH 31.9 pg (25.0-35.0) 09/27/18 18:00 MCHC 34.2 g/dL (31.0-37.0) 09/27/18 18:00 RDW 12.5 % (11.5-15.5) 09/27/18 18:00 Plt Count 233 k/uL (150-450) 09/27/18 18:00 Neutrophils % 59 % 09/27/18 18:00 Lymphocytes % 34 % 12 18:00 Monocytes % 4 % 09/27/18 18:00 Eosinophils % 1 % 09/27/18 18:00 Basophils % 0 % 09/27/18 18:00 Neutrophils # 4.8 k/uL (1.3-7.7) 09/27/18 18:00 Lymphocytes # 2.8 k/uL (1.0-4.8) 09/27/18 18:00 Monocytes # 0.4 k/uL (0-1.0) 09/27/18 18:00 Eosinophils # 0.1 k/uL (0-0.7) 09/27/18 18:00 Basophils # 0.0 k/uL (0-0.2) 09/27/18 18:00 Sodium 141 mmol/L (137-145) 09/27/18 18:00 Potassium 4.4 mmol/L (3.5-5.1) 09/27/18 18:00 Chloride 106 mmol/L (98-107) 09/27/18 18:00 Carbon Dioxide 25 mmol/L (22-30) 09/27/18 18:00 Anion Gap 10 mmol/L 09/27/18 18:00 BUN 20 mg/dL (9-20) 09/27/18 18:00 Creatinine 0.84 mg/dL (0.66-1.25) 09/27/18 18:00 Est GFR (CKD-EPI)AfAm >90 (>60 ml/min/1.73 sqM) 09/27/18 18:00 Est GFR (CKD-EPI)NonAf 85 (>60 ml/min/1.73 sqM) 09/27/18 18:00 Glucose 134 mg/dL (74-99) H 09/27/18 18:00 POC Glucose (mg/dL) 146 mg/dL (75-99) H 09/29/18 20:08 POC Glu Collision Repairer ID 09/29/18 20:[address] Glu mg/dL 143 09/27/18 18:00 Hemoglobin A1c 6.6 % (4.0-6.0) H 09/27/18 18:00 Calcium 9.3 mg/dL (8.4-10.2) 09/27/18 18:00 Total Bilirubin 0.4 mg/dL (0.2-1.3) 09/27/18 18:00 AST 23 U/L (17-59) 09/27/18 18:00 ALT 41 U/L (21-72) 09/27/18 18:00 Alkaline Phosphatase 90 U/L (38-126) 09/27/18 18:00 Total Protein 6.3 g/dL (6.3-8.2) 09/27/18 18:00 Albumin 3.7 g/dL (3.5-5.0) 09/27/18 18:00 Microbiology 09/27/18 18:00 Blood Blood Culture - Preliminary No Growth after 48 hours Assessment and Plan (1) Diabetic foot ulcer associated with type 2 diabetes mellitus, with fat layer exposed Current Visit: Yes Status: Acute Code(s): E11.621 - TYPE 2 DIABETES MELLITUS WITH FOOT ULCER; L97.502 - NON-PRS CHRONIC ULCER OTH PRT UNSP FOOT W FAT LAYER EXPOSED SNOMED Code(s): 8535921677771 (2) Osteomyelitis of toe of right foot Narrative/Plan: This 78-year-old gentleman relates that he's had some decline of his status as of late. He had recent back surgery and that his certainly reduce his mobility. Does not recall any specific trauma to the right great toe but has a significant ulceration to its tip. Given the concern for osteomyelitis and MRI has been requested to evaluate for underlying bony infection. This will help determine the course of therapy. We' ll request Santyl ointment to be applied each morning to the ulceration. He will need to offload this more specifically. Would ideally follow up in the wound healing Center. Potential candidate for total contact cast, antibiotic therapy with Zosyn for now pending further data. 09/29/2018 reveals this pleasant gentleman still feels somewhat poorly. We reviewed his MRI shows evidence of osteomyelitis of the distal aspect of the right great toe. With his diabetes as well as a diabetic foot infection Amaro grade 3 to require outpatient intravenous antibiotic therapy for salvage of the foot and toe. He lives in [place] and relates that will have great difficulties with transportation. Declines, the wound healing Center. Will have to work with the discharge planners to see if he can have home intravenous antibiotic therapy plan Invanz for once daily therapy for home. Local wound care with [facility] will be continued Will need home care nurse to help with the treatment Laboratory with the local steelscope operator to design a offloading boot to help with the ulcer to the right great toe since he will not be able to attend the wound center. Blood culture negative Requested PICC line held his Xarelto hopefully will be able to transition to home soon. Current Visit: Yes Status: Acute Code(s): M86.9 - OSTEOMYELITIS, UNSPECIFIED SNOMED Code(s): 02066217
[2018-09-30] MEDS: PIPERACILLIN-TAZOBACTAM 3.375 GM in SODIUM CHLORIDE 0.9% 100 ML IVPB SCH ×2 (00:11→08:28)
[2018-09-30 07:16] LABS: Glucose,Whole Blood 139 mg/dL (75-99)
--- NOTE | 2018-09-30 08:12 | CONS ---
CONSULTATION This is a 78-year-old gentleman who has a history of diabetes, came to [facility] with history of right foot big toe scab on the tip of the big toe. Patient has a workup. X- ray of the foot showed no osteo. Patient also had MRI which showed no osteo. Patient has been on antibiotic under care of Dr. Hinds. The patient had a left fifth toe amputation in the past. PHYSICAL EXAMINATION: On examination, patient was seen in his room. His vital signs stable. NECK: Supple. Trachea central. CHEST: Clear to auscultation. ABDOMEN: Soft. Femoral pulses are present. Dorsal pedis not palpable. Right big toe has a dry scab with no evidence of infection or drainage and bone scan is negative for osteo. The patient is under care of Infectious Disease. If patient needs any surgical intervention, we will proceed. Will follow with you. MMODL / IJN: [id number] /
[2018-09-30] MEDS: INSULIN ASPART 100 UNIT/ML 1 ML 10 ML VIAL SQ SCH ×2 (08:27→11:56)
[2018-09-30] MEDS: DIPYRIDAMOLE-ASPIRIN 200-25 MG 1 EACH CPMP.12HR PO SCH (08:29)
[2018-09-30] MEDS: INSULIN DETEMIR 100 UNIT/ML 10 ML VIAL SQ SCH (08:29)
[2018-09-30] MEDS: amLODIPine 10 MG TAB PO SCH (08:29)
[2018-09-30] MEDS: MECLIZINE 25 MG TAB PO SCH (08:30)
[2018-09-30] MEDS: OXYBUTYNIN CHLORIDE 5 MG TAB PO SCH (08:30)
[2018-09-30] MEDS: LISINOPRIL 20 MG TAB PO SCH (08:30)
[2018-09-30] MEDS: metFORMIN 500 MG TAB PO SCH (08:30)
[2018-09-30] MEDS: MAGNESIUM OXIDE 400 MG TAB PO SCH (08:30)
[2018-09-30] MEDS: COLLAGENASE 250 UNIT/GM OINTMENT 30 GM TUBE TOPICAL SCH (08:32)
[2018-09-30 09:09] LABS: INR 0.9 (<1.2); Prothrombin Time 9.8 sec (9.0-12.0)
[2018-09-30 11:33] LABS: Glucose,Whole Blood 136 mg/dL (75-99)
--- NOTE | 2018-09-30 11:47 | IR ---
PICC LINE PLACEMENT: HISTORY: Infection requiring long-term antibiotic therapy PROCEDURE: Ultrasound and fluoroscopic guidance of PICC line placement. COMPLICATIONS: None ANESTHESIA: 1. 1% Lidocaine locally. FINDINGS/TECHNIQUE: The procedure was explained to the patient. The risks, complications, benefits and alternatives were discussed and any questions were answered. Informed consent was obtained. The patient was placed supine on the fluoroscopic table and prepped and draped in the usual sterile fash ion. Utilizing a 21 gauge needle and sonographic and fluoroscopic guidance, access in the left basi lic vein was achieved and there is placement of a 0.018 guidewire. The vein is patent. A 4-F sheath was placed over the guidewire. The guidewire and dilator were removed and a 4-F. PICC line was plac ed through the sheath with the tip at the level of the SVC. The sheath was removed, the catheter was flushed and sutured into position. The patient was stable throughout the procedure and remained sta ble upon discharge from the Department of Radiology. The vein puncture was patent under ultrasound. A cannon scale image was obtained to document patency of the vein punctured. All elements of the maximal barrier technique were utilized. FLUOROSCOPY TIME: 0.2 minutes and one image provided IMPRESSION: Successful PICC line placement under ultrasound and fluoroscopic guidance.
[2018-09-30] MEDS: CHOLECALCIFEROL 1,000 UNIT TAB PO SCH (11:56)
[2018-09-30 12:17] VITALS: BP 136/65; PULSE 66; RESP 17; TEMP 97.7
[2018-09-30] MEDS ORDERED: ERTAPENEM 1 GM in SODIUM CHLORIDE 0.9% 50 ML IVPB STA (13:13)
--- NOTE | 2018-09-30 21:21 | P.PN ---
Subjective Progress Note Date: 09/30/18 This is a 78-year-old male patient is known to ID service as he was seen many years ago for a left fifth toe chronic wound and underwent amputation with Dr. Lee. 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 He saw a primary care physician 4 days ago and started Augmentin and following that he saw Dr. Garcia, proposal consultant, in [place] and was referred to the hospital for IV antibiotic and treatment. Patient denies having any fever or chills. He denies any loss of appetite, muscle aches, nausea, vomiting or diarrhea. He states blood sugars been running normal and if anything were on the low side less than 100. His last hemoglobin A1c done in May was 6.7. Patient presented to [facility] emergency center was found to be afebrile, white count 8.2, creatinine 0.84, albumin 3.7. X-ray of the toes showed soft tissue swelling with no osteomyelitis. Patient was started on Kefzol and admitted to the [facility] floor. 09/29/2018 patient is feeling about the same. Lites is overall is not feeling very well. In his status continues to decline over this last year especially after his back surgery. 09/30/2018 patient has had further improvement. The patient is had evaluation with home care and apparently will be receiving outpatient intravenous antibiotic therapy in the home. We have asked for a offloading boot for the right foot to offload the great toe and allow further healing. The patient has significant transportation issues. In relates we'll not be able to come to the wound healing Center. We'll be able to make it to the office at least twice over the next 6 weekswhile receiving his intravenous antibiotic therapy for his osteomyelitis of the right great toe. Objective - Vital Signs Vital signs: Vital Signs Temp 97.7 F 09/30/18 12:16 Pulse 66 09/30/18 12:16 Resp 17 09/30/18 12:16 BP 136/65 09/30/18 12:16 Pulse Ox 96 09/30/18 12:16 Intake & Output 09/30/18 09/30/18 10/01/18 06:59 18:59 06:59 Intake Total 175 100 Balance 175 100 Intake: Intake, IV Titration 175 100 Amount Piperacillin-Tazobactam 3 175 100 .375 gm In Sodium Chloride 0.9% 100 ml @ 25 mls/hr IVPB Q8HR [facility] Rx# :[id number] Other: Voiding Method Toilet Toilet Urinal Urinal # Voids 1 - Exam Gen: This is a 78-year-old male. He is sitting up in bed appears to be comfortable and in no acute distress. HEENT: Head is atraumatic, normocephalic. Pupils equal, round. Sclerae is anicteric. Conjunctiva slightly pale. Mucous members of the mouth are moist. No thrush noted. NECK: Supple. No JVD. No lymphadenopathy. No thyromegaly. LUNGS: Clear to auscultation. No wheezes or rhonchi. No intercostal retractions. HEART: Regular rate and rhythm. No murmur. ABDOMEN: Soft. Bowel sounds are present. No masses. No tenderness. EXTREMITIES: No pedal edema. No calf tenderness. Dorsalis pedis +2 bilaterally. Patient has a ulcer which is diabetic in nature eschar present unstageable to the distal right great toe with some erythema to the right great toe. No active drainage. No foul order. Onychomycosis noted bilaterally. NEUROLOGICAL: Patient is awake, alert and oriented x3. Cranial nerves 2 through 12 are grossly intact. But does have evidence of dense neuropathy to the bilateral feet. - Labs CBC & Chem 7: 09/27/18 18:00 09/27/18 18:00 Labs: Abnormal Lab Results - Last 24 Hours (Table) 09/30/18 09/30/18 Range/Units 07:15 11:31 POC Glucose (mg/dL) 139 H 136 H (75-99) mg/dL Microbiology - Last 24 Hours (Table) 09/27/18 18:00 Blood Culture - Preliminary Blood No Growth after 72 hours Laboratory Results WBC 8.2 k/uL (3.8-10.6) 09/27/18 18:00 RBC 3.95 m/uL (4.30-5.90) L 09/27/18 18:00 Hgb 12.6 gm/dL (13.0-17.5) L 09/27/18 18:00 Hct 36.9 % (39.0-53.0) L 09/27/18 18:00 MCV 93.4 fL (80.0-100.0) 09/27/18 18:00 MCH 31.9 pg (25.0-35.0) 09/27/18 18:00 MCHC 34.2 g/dL (31.0-37.0) 09/27/18 18:00 RDW 12.5 % (11.5-15.5) 09/27/18 18:00 Plt Count 233 k/uL (150-450) 09/27/18 18:00 Neutrophils % 59 % 09/27/18 18:00 Lymphocytes % 34 % 09/27/18 18:00 Monocytes % 4 % 09/27/18 18:00 Eosinophils % 1 % 09/27/18 18:00 Basophils % 0 % 09/27/18 18:00 Neutrophils # 4.8 k/uL (1.3-7.7) 09/27/18 18:00 Lymphocytes # 2.8 k/uL (1.0-4.8) 09/27/18 18:00 Monocytes # 0.4 k/uL (0-1.0) 09/27/18 18:00 Eosinophils # 0.1 k/uL (0-0.7) 09/27/18 18:00 Basophils # 0.0 k/uL (0-0.2) 09/27/18 18:00 PT 9.8 sec (9.0-12.0) 09/30/18 08:39 INR 0.9 (<1.2) 09/30/18 08:39 Sodium 141 mmol/L (137-145) 09/27/18 18:00 Potassium 4.4 mmol/L (3.5-5.1) 09/27/18 18:00 Chloride 106 mmol/L (98-107) 09/27/18 18:00 Carbon Dioxide 25 mmol/L (22-30) 09/27/18 18:00 Anion Gap 10 mmol/L 09/27/18 18:00 BUN 20 mg/dL (9-20) 09/27/18 18:00 Creatinine 0.84 mg/dL (0.66-1.25) 09/27/18 18:00 Est GFR (CKD-EPI)AfAm >90 (>60 ml/min/1.73 sqM) 09/27/18 18:00 Est GFR (CKD-EPI)NonAf 85 (>60 ml/min/1.73 sqM) 09/27/18 18:00 Glucose 134 mg/dL (74-99) H 09/27/18 18:00 POC Glucose (mg/dL) 136 mg/dL (75-99) H 09/30/18 11:31 POC Glu [employer]static [employer] Operator ID Julio Cesar Preciado 09/30/18 11:[address] Glu mg/dL 143 09/27/18 18:00 Hemoglobin A1c 6.6 % (4.0-6.0) H 09/27/18 18:00 Calcium 9.3 mg/dL (8.4-10.2) 09/27/18 18:00 Total Bilirubin 0.4 mg/dL (0.2-1.3) 09/27/18 18:00 AST 23 U/L (17-59) 09/27/18 18:00 ALT 41 U/L (21-72) 09/27/18 18:00 Alkaline Phosphatase 90 U/L (38-126) 09/27/18 18:00 Total Protein 6.3 g/dL (6.3-8.2) 09/27/18 18:00 Albumin 3.7 g/dL (3.5-5.0) 09/27/18 18:00 Microbiology 09/27/18 18:00 Blood Blood Culture - Preliminary No Growth after 72 hours Assessment and Plan (1) Diabetic foot ulcer associated with type 2 diabetes mellitus, with fat layer exposed Status: Acute Code(s): E11.621 - TYPE 2 DIABETES MELLITUS WITH FOOT ULCER; L97.502 - NON-PRS CHRONIC ULCER OTH PRT UNSP FOOT W FAT LAYER EXPOSED SNOMED Code(s): 0067002531721 (2) Osteomyelitis of toe of right foot Narrative/Plan: This 78-year-old gentleman relates that he's had some decline of his status as of late. He had recent back surgery and that his certainly reduce his mobility. Does not recall any specific trauma to the right great toe but has a significant ulceration to its tip. Given the concern for osteomyelitis and MRI has been requested to evaluate for underlying bony infection. This will help determine the course of therapy. We' ll request Santyl ointment to be applied each morning to the ulceration. He will need to offload this more specifically. Would ideally follow up in the wound healing Center. Potential candidate for total contact cast, antibiotic therapy with Zosyn for now pending further data. 09/29/2018 reveals this pleasant gentleman still feels somewhat poorly. We reviewed his MRI shows evidence of osteomyelitis of the distal aspect of the right great toe. With his diabetes as well as a diabetic foot infection Amaro grade 3 to require outpatient intravenous antibiotic therapy for salvage of the foot and toe. He lives in [place] and [facility] that will have great difficulties with transportation. Declines, the wound healing Center. Will have to work with the discharge planners to see if he can have home intravenous antibiotic therapy plan Invanz for once daily therapy for home. Local wound care with [facility] will be continued Will need home care nurse to help with the treatment Laboratory with the local busgirl to design a offloading boot to help with the ulcer to the right great toe since he will not be able to attend the wound center. Blood culture negative Requested PICC line held his Xarelto hopefully will be able to transition to home soon. 09/30/2018 the patient is now had further improvement of his status. He has had IV access placed and will be receiving outpatient intravenous antibiotic therapy and his home. Local infusion company. Local wound care is with Santyl. Offloading boot has been requested. He understands the importance of offloading that foot. He'll follow-up in the office in 3 weeks. Call the office if he has acute interim troubles. With the blood work has been requested. Status: Acute Code(s): M86.9 - OSTEOMYELITIS, UNSPECIFIED SNOMED Code(s): 55470873
== END 2018-09-30 16:50 | disposition home health service (06) | DRG 638 ==
LOC: EC 17:51 → 3NMEDONC 19:55
PROVIDERS: ADMIT Hospitalist; ATTEND Hospitalist
PROC: 02HV33Z Insertion of Infusion Device into Superior Vena Cava, Percutaneous Approach (ICD-10-PCS; principal; 2018-09-30 10:56)
DX: E11.621 Type 2 diabetes mellitus with foot ulcer (principal); M86.9 Osteomyelitis, unspecified; E11.42 Type 2 diabetes mellitus with diabetic polyneuropathy; E11.69 Type 2 diabetes mellitus with other specified complication; F02.80 Dementia in other diseases classified elsewhere, unspecified severity, without behavioral disturbance, psychotic disturbance, mood disturbance, and anxiety; G30.1 Alzheimer's disease with late onset; I10 Essential (primary) hypertension; L03.031 Cellulitis of right toe; R32 Unspecified urinary incontinence; Z79.4 Long term (current) use of insulin; Z79.899 Other long term (current) drug therapy; Z86.73 Personal history of transient ischemic attack (TIA), and cerebral infarction without residual deficits; Z87.891 Personal history of nicotine dependence; Z89.422 Acquired absence of other left toe(s); M19.90 Unspecified osteoarthritis, unspecified site; Z79.1 Long term (current) use of non-steroidal anti-inflammatories (NSAID); B35.1 Tinea unguium; L97.512 Non-pressure chronic ulcer of other part of right foot with fat layer exposed
CPT/HCPCS: 36415; 36569; 76937; 77001; 80053; 83036; 85025; 85610; 87040; 96365; 99284